=== PATIENT | male | born 1960 | race Caucasian/White ===

== ENCOUNTER 2025-01-12 08:05 | Inpatient (IN) | payer MEDICARE, SELFPAY ==
[2025-01-12] VITALS (26 sets, daily range): BP systolic 95–145; BP diastolic 52–93; PULSE 66–106; RESP 16–114; TEMP 36.2–37.2; O2SAT 92–100; BMI 21.2; BMI 24.3
--- NOTE | 2025-01-12 08:10 | EX.ED.GUMALE ---
HPI History of Present Illness Chief Complaint: Complaint Informant: patient Pain Onset: Weeks Context: Gradual Onset Current Severity: Mild Maximum Severity: Mild Narrative Narrative: 64-year-old male currently has no primary care physician. Denies any past medical or surgical history. States he has had gross hematuria for the last month. At times it is difficult to pee. He denies any significant clots. Does not burn or hurt to urinate. Fianc? states he had about a 20 pound weight loss several months ago. He denies any melena. He denies any bruising. Currently he is on no medications. No prior history of hematuria. Prior similar symptoms: Yes Recent Illness/Hospitalization: No PFSH PFSH Medical History no medical history Home Medications ?Medication ?Instructions ?Recorded ?Last Taken ?Type NK 01/12/25 Unknown History Allergy/AdvReac Type Severity Reaction Status Date / Time No Known Allergies Allergy Verified 01/12/25 08:06 Social History Smoking Status: Current every day smoker tobacco type: cigarettes ROS ROS ED ROS Narrative Gross hematuria otherwise denies recent illness. Constitutional Constitutional ED: Denies chills or fever(s) Eyes Eyes: Denies blurry vision ENT ENT ED: Denies ear pain Cardiovascular Cardiovascular: Denies chest pain Respiratory/Chest Respiratory/Chest: Denies cough Gastrointestinal Gastrointestinal: Denies abdominal pain, constipation, diarrhea, melena, nausea or vomiting Genitourinary Genitourinary ED: Reports hematuria; Denies dysuria Musculoskeletal Musculoskeletal: Denies arthralgias or back pain Integumentary Denies abscess Neurologic Neurologic: Denies headache(s) Psychiatric Psychiatric: Denies anxiety Endocrine Endocrinology: Denies polydipsia Hematologic/Lymphatic Hematologic/Lymphatic: Denies easy bleeding, easy bruising or lymphadenopathy Allergic/Immunologic Allergic/Immunologic ED: Denies mouth swelling, tongue swelling or urticaria EXAM Physical Exam Narrative Exam Narrative: Well-appearing 64-year-old male. Vital signs are stable and afebrile. Sitting upright in bed. Fianc? in the room. Patient is in no acute distress. H EENT exam pupils are unreactive light. Moist membranes. Neck nontender. No JVD. No lymphadenopathy. Lungs clear to auscultation bilaterally. Heart tachycardic 105 no murmur. Chest wall ribs nontender. Abdomen soft, nontender, nondistended, normal bowel sounds without peritoneal signs. No suprapubic tenderness. Moving all 4 extremities. Nontender no edema. Normal strength. Neurologically is awake alert. Answer questions following commands. He does have a mild tremor. Skin appears pale. No rashes. No petechiae or purpura. No bruising. I do not see any jaundice or scleral icterus. Const Vital Signs: 01/12/25 08:06 01/12/25 09:41 01/12/25 10:13 Temperature 97.2 F L 98 F Temperature Source Temporal Pulse Rate 106 H 88 88 Respiratory Rate 19 H 17 17 Blood Pressure 105/52 L 95/59 L 103/58 L Blood Pressure Mean 69 71 73 Pulse Ox 98 100 100 Oxygen Delivery Method Room Air Room Air Positive well nourished and well developed; Negative for obese, cachectic, contractures or unkempt General Appearance ED: well developed, NAD and pallor; Negative for unkempt, cachectic or contractures Nutritional Appearance: Negative for cachectic or obese HEENT Reports moist mucous membranes Eyes PERRL and EOMs intact bilaterally General Eye ED: Negative for scleral icterus Neck no lymphadenopathy, supple and no JVD Resp normal respiratory effort and clear to auscultation bilaterally Cardio regular rhythm, S1 normal heart sound, S2 normal heart sound and no murmurs; Negative for regular rate Rate: tachycardic GI non-tender, non-distended and no masses Auscultation: normoactive bowel sounds Palpation: soft; Negative for tender, guarding or splenomegaly no CVA tenderness Bladder / Kidney Exam: No CVA tenderness Groin / Perineum Exam: Negative for edema or lesions Back/Spine no CVA tenderness General Back: Negative for CVA tenderness Cervical Spine: Negative for cervical spine tenderness Thoracic Spine / Upper Back: Negative for thoracic spinal tenderness Lumbar Spine / Lower Back: Negative for lumbar spinal tenderness Extremity normal to inspection Neuro oriented x3, CN's II-XII intact bilaterally, moves all extremities and no focal motor deficits Neuro Narrative: Tremor. Sensorium / Orientation: alert, oriented to person, oriented to place and oriented to time Motor Exam: strength 5/5 throughout Psych mental status grossly normal Appearance: Negative for unkempt Attitude: No agitated Mood & Affect: Negative for depressed, anxious or tearful Thought Process: normal thought process Thought Content: normal thought content Skin General Skin Exam: pallor; Negative for jaundice Lesions: no lesions Rashes: no rashes Trauma: Negative for abrasion or laceration MDM MDM MDM Narrative Medical decision making narrative: 64-year-old male has not seen a physician for some time. Complaining of painless hematuria for about a month. Screening labs are being obtained. UA to rule out infection. CBC for possible anemia. Bladder scan postvoid to see if he is having any urinary retention but he seems like he is urinating okay. Patient was having nausea was given IV Zofran. Due to the patient's significant anemia will be typed and crossed for 4 units. Transfused 2. He will be admitted once the labs return. I am also adding a CAT scan of his abdomen and pelvis due to the anemia and weight loss. I spoke to both the hospitalist and urology. Urology wanted a three-way 22 [place] Freeman catheter placed to irrigate out the bladder. Due to the patient's anemia and need for transfusion hospitalist wanted the patient admitted to the ICU. History & Record Review Discussion w/independent historian: Patient and Family Additional record(s) reviewed:: No prior records Lab Data Attestation: I reviewed the patient's lab results. Lab results narrative: Postvoid bladder scan was only 93. No urinary retention. Urinalysis shows 250 occult blood. No nitrates. No bacteria. Greater than 100 red cells. 10-25 white cells. Patient is having no dysuria. Urine culture will be sent. CBC has a white count of 10. A hemoglobin of 3.6 and a hematocrit of 11.5. Platelet count 479. No old labs available for comparison. Chemistries show a gap at 21. BUN and creatinine of 27 and 2.3. Glucose 183. Again no old labs available for comparison. CAT scan shows a bladder mass with bilateral hydronephrosis consistent with possible bladder cancer. Labs: Laboratory Results - last 24 hr 01/12/25 01/12/25 01/12/25 08:15 08:32 08:32 WBC Cancelled Corrected WBC Cancelled RBC Cancelled Hgb Cancelled Hct Cancelled MCV Cancelled MCH Cancelled MCHC Cancelled RDW Std Deviation Cancelled RDW Coeff of Jodie Cancelled Plt Count Cancelled MPV Cancelled Immature Gran % (Auto) Cancelled Neut % (Auto) Cancelled Lymph % (Auto) Cancelled [place] % (Auto) Cancelled Eos % (Auto) Cancelled Baso % (Auto) Cancelled Absolute Neuts (auto) Cancelled Absolute Lymphs (auto) Cancelled Total Counted Cancelled Neutrophils % (Manual) Cancelled Band Neutrophils % Cancelled Lymphocytes % (Manual) Cancelled Monocytes % (Manual) Cancelled Eosinophils % (Manual) Cancelled Basophils % (Manual) Cancelled Metamyelocytes % Cancelled Myelocytes % Cancelled Promyelocytes % Cancelled Blast Cells % Cancelled Plasma Cell % (Manual) Cancelled Other Cells % Cancelled Nucleated RBC % Cancelled Nucleated RBCs/100 WBC Cancelled Differential Comment Cancelled Diff Path Review Cancelled Hypersegmented Neuts Cancelled Atypical Lymphocytes Cancelled Reactive Lymphocytes Cancelled Smudge Cells Cancelled Toxic Granulation Cancelled Toxic Vacuolation Cancelled Dohle Bodies Cancelled [place] Rods Cancelled Platelet Estimate Cancelled Plt Morphology Comment Cancelled RBC Morphology Cancelled Cancelled Polychromasia Cancelled Hypochromasia Cancelled Basophilic Stippling Cancelled Anisocytosis Cancelled Microcytosis Cancelled Macrocytosis Cancelled Spherocytes Cancelled Sickle Cells Cancelled Target Cells Cancelled Tear Drop Cells Cancelled Ovalocytes Cancelled Stomatocytes Cancelled [place] Bodies Cancelled [place] Cells Cancelled Bite Cells Cancelled Crenated Cell Cancelled Acanthocytes (Spur) Cancelled Rouleaux Cancelled Schistocytes Cancelled Sodium 135 Potassium 4.2 Chloride 99 Carbon Dioxide 15.5 L Anion Gap 21 H BUN 27 H Creatinine 2.30 H Estim Creat Clear Calc 28.40 L Est GFR (MDRD) Non-Af 31 L BUN/Creatinine Ratio 11.8 Glucose 183 H Calcium 8.6 Total Bilirubin 0.40 Direct Bilirubin 0.19 AST 21 ALT < 5 Alkaline Phosphatase 74 Total Protein 6.1 Albumin 3.9 Globulin 2.3 Urine Color Red Urine Clarity Turbid Urine pH 6.5 Ur Specific [place] 1.015 Urine Protein TNP Urine Glucose (UA) Normal Urine Ketones 5 H Urine Occult Blood 250 H Urine Nitrite Negative Urine Bilirubin Negative Urine Urobilinogen Normal Ur Leukocyte Esterase 25 H Urine RBC > 100 SEEN Urine WBC 10-25 SEEN Ur Squamous Epith Cells 0 SEEN Urine Bacteria 0 SEEN Urine Mucus 0 SEEN U Random Total Protein 128.0 H Blood Type Antibody Screen Crossmatch 01/12/25 01/12/25 08:50 09:10 WBC 10.8 Corrected WBC RBC 1.37 L Hgb 3.6 L* Hct 11.5 L MCV 83.9 MCH 26.3 L MCHC 31.3 L RDW Std Deviation 45.7 H RDW Coeff of Jodie 15.0 H Plt Count 479 H MPV 8.8 Immature Gran % (Auto) 0.600 Neut % (Auto) 81.5 H Lymph % (Auto) 12.9 L [place] % (Auto) 4.3 Eos % (Auto) 0.5 Baso % (Auto) 0.2 Absolute Neuts (auto) 8.8 H Absolute Lymphs (auto) 1.40 Total Counted Neutrophils % (Manual) Band Neutrophils % Lymphocytes % (Manual) Monocytes % (Manual) Eosinophils % (Manual) Basophils % (Manual) Metamyelocytes % Myelocytes % Promyelocytes % Blast Cells % Plasma Cell % (Manual) Other Cells % Nucleated RBC % 0 Nucleated RBCs/100 WBC Differential Comment Diff Path Review Hypersegmented Neuts Atypical Lymphocytes Reactive Lymphocytes Smudge Cells Toxic Granulation Toxic Vacuolation Dohle Bodies [place] Rods Platelet Estimate Plt Morphology Comment RBC Morphology Polychromasia Hypochromasia Basophilic Stippling Anisocytosis Microcytosis Macrocytosis Spherocytes Sickle Cells Target Cells Tear Drop Cells Ovalocytes Stomatocytes [place] Bodies Converse Cells Bite Cells Crenated Cell Acanthocytes (Spur) Rouleaux Schistocytes Sodium Potassium Chloride Carbon Dioxide Anion Gap BUN Creatinine Estim Creat Clear Calc Est GFR (MDRD) Non-Af BUN/Creatinine Ratio Glucose Calcium Total Bilirubin Direct Bilirubin AST ALT Alkaline Phosphatase Total Protein Albumin Globulin Urine Color Urine Clarity Urine pH Ur Specific [place] Urine Protein Urine Glucose (UA) Urine Ketones Urine Occult Blood Urine Nitrite Urine Bilirubin Urine Urobilinogen Ur Leukocyte Esterase Urine RBC Urine WBC Ur Squamous Epith Cells Urine Bacteria Urine Mucus U Random Total Protein Blood Type B POSITIVE Antibody Screen NEGATIVE Crossmatch See Detail Radiography Diagnostic Testing: Clinical Impression(s) from Imaging Studies Abdomen/Pelvis CT 01/12/25 09:30 IMPRESSION: 4.8 cm urinary bladder mass is highly suspicious for urothelial carcinoma. There is associated severe left and [id number] right hydroureteronephrosis with left renal parenchymal thinning. Dense debris in the urinary bladder is probably blood. A pelvis MRI may increase sensitivity for local invasion. No lymphadenopathy to suggest metastasis. Yellow Alert: 4.8 cm urinary bladder mass is highly suspicious for urothelial carcinoma. Reading [facility] Critical Care Time Critical Care Time: Yes Critical care time (excluding procedures): 30-74 minutes, Including time spent:, Discussing w/Patient &/or Family/Supply Clerk, Discussing w/Consultants, Arranging Admission or Transfer, Performing Direct Patient Care at Bedside and - (35 minutes.) Discharge Plan Dx/Rx/DC Orders Clinical Impression: Severe anemia, Gross hematuria, Bladder mass, Hydronephrosis, bilateral, Acute kidney injury, Acute bilateral obstructive uropathy Disposition Disposition: Acute Care Hospital [facility]
[2025-01-12 08:21] LABS: Bacteria 0 SEEN /hpf (None Seen); Mucous, Urine 0 SEEN /hpf (<or=2+); Squamous Epithelial Cells - UA 0 SEEN /hpf (0-5)
[2025-01-12 08:26] LABS: Color, Urine Red (Yellow); Glucose, Dipstick Normal (Normal); Ketone-Dipstick 5 mg/dl (Negative); Leukocyte Esterase-Dipstick 25 /ul (Negative); Nitrite-Dipstick Negative (Negative); Occult Blood-Urine 250 /ul (Negative); Specific Gravity, Urine 1.015 (1.002-1.030); Urine Bilirubin Dipstick Negative (Negative); Urine Clarity Turbid (Clear); Urine Urobilinogen Normal (Normal); Urine pH 6.5 (5.0 - 8.0)
[2025-01-12 08:49] LABS: Red Blood Cells-Urine > 100 SEEN /hpf (0-5); White Blood Cells 10-25 SEEN /hpf (0-5)
[2025-01-12] MEDS: Ondansetron 4 MG/2 ML Vial IV (08:57)
[2025-01-12 09:01] LABS: Absolute Neutrophil Count 8.8 X10^3/uL (2.0-7.7); Basophil# 0.02 X10^3/uL; Basophil% 0.2 % (0-1); Eosinophil# 0.05 X10^3/uL; Eosinophils% 0.5 % (0-5); Hematocrit 11.5 % (40-54); Lymphocyte % 12.9 % (19-41); Mean Corp Hgb Conc 31.3 g/dL (32-36); Mean Corpuscular Hgb 26.3 pg (27.0-32.0); Mean Corpuscular Volume 83.9 fL (80-94); Mean Platelet Vol. 8.8 fl (6.2-12.0); Monocyte# 0.46 X10^3/uL; Monocyte% 4.3 % (0-10); NRBC Flagged by Analyzer 0 % (0-5); Neutrophil # 8.83 X10^3/uL (2.7-7.7); Neutrophil % 81.5 % (47-70); POSITIVE COUNT YES; Platelet Count 479 K/mm3 (150-450); RBC Distribution Width SD 45.7 fl (35.1-43.9); Red Blood Count 1.37 M/mm3 (4.6-6.2); White Blood Count 10.8 K/mm3 (4.4-11.0)
[2025-01-12 09:02] LABS: Hemoglobin 3.6 g/dL (13.0-16.5)
--- NOTE | 2025-01-12 09:04 | ED.RN ---
LAB CALLED CRITICAL OF HEMOGLOBIN 3.6 DR GONZALEZ
--- NOTE | 2025-01-12 09:30 | CT_ITS ---
PROCEDURE: ABDOMEN/PELVIS W IV CONT ONLY 01/12/2025 REASON FOR EXAM: ANEMIA AND WEIGHT LOSS Hematuria TECHNIQUE: Abdomen and pelvis CT with intravenous contrast. Coronal and Sagittal reconstruction series were provided. PATIENT PREPARATION: Per protocol CONTRAST: Isovue-300 VOLUME: 94 mL IV One or more dose reduction techniques were used (e.g., Automated exposure control, adjustment of the mA and/or kV according to patient size, use of iterative reconstruction technique. RADIATION DOSE SUMMARY: DLP: 899.40 mGycm COMPARISON: None FINDINGS: Lung bases: Mild dependent atelectasis Liver: Normal size. No mass. Gallbladder: Within normal limits. Spleen: Normal size. Pancreas: Diffuse fatty atrophy. Adrenals: No nodule. Kidneys: Left parenchymal thinning with delayed nephrogram. Bladder: 4.5 x 4.8 x 3.3 cm bladder mass obscures the left ureter orifice and at least abuts the right ureter orifice. Right more than left urinary bladder wall thickening. Severe left and moderate to severe right hydroureteronephrosis. Dense debris in the urinary bladder. Reproductive Organs: The prostate is not enlarged. Bowel: No bowel obstruction. Appendix: Within normal limits. Lymph nodes: No suspicious lymph node enlargement. Vasculature: Mild diffuse atherosclerotic calcifications are noted. Peritoneum / Retroperitoneum: No free fluid or gas. Bones: Degenerative changes of the spine. CT/Abdomen/Pelvis W IV Cont ONLY IMPRESSION: 4.8 cm urinary bladder mass is highly suspicious for urothelial carcinoma. The re is associated severe left and [id number] right hydroureteronephrosis with left renal parenchymal thin nika. Dense debris in the urinary bladder is probably blood. A pelvis MRI may increase sensitivity for local invasion. No lymphadenopathy to suggest metastasis. Yellow Alert: 4.8 cm urinary bladder mass is highly suspicious for urothelial c arcinoma. Reading Location: [facility]
[2025-01-12 09:39] LABS: AST(SGOT) 21 U/L (<=37); Alanine Aminotransfer ALT/SGPT < 5 U/L (<=46); Albumin, Serum 3.9 g/dL (3.4-4.8); Alkaline Phosphatase 74 U/L (40-129); Anion Gap 21 (5-15); BUN 27 mg/dL (4-19); BUN/Creat Ratio 11.8 RATIO (10-20); Bilirubin, Direct 0.19 mg/dL (0.00-0.30); Calcium,Total 8.6 mg/dL (7.6-11.0); Carbon Dioxide 15.5 mmol/L (21.0-32.0); Chloride 99 mmol/L (98-108); EST Glomerular Filtration Rate 31 (>60); Globulin 2.3 g/dL (2.2-4.2); Glucose 183 mg/dL (70-99); Potassium 4.2 mmol/L (3.3-5.1); Protein, Total 6.1 g/dL (5.9-8.4); Sodium Level 135 mmol/L (133-145)
--- NOTE | 2025-01-12 10:39 | HP.PCM.HOS_ITS ---
HPI - General General Date of Admission: 01/12/25 Date of Service: 01/12/25 Chief Complaint: hematuria HPI Narrative SAI JAY, is a 64 M with a PMH as outlined who presents via the ED On 01/12/2025 with a complaint of hematuria for at least a month prior to admission. He has not seen a doctor in years. HE says the hematuria worsened and persisted so he came in to the ED. He denied any fever, chills, cough, chest pain, abdominal pain, nausea, vomiting or any other symptoms. REview of systems is otherwise negative. Vitals in the ED wre BP of 103/58, HI of 88, RR of 17 and temp of 98F. He was saturating at 100% on room air. CBC showed hemoglobin of 3.6 with WBC of 10.8 and platelets of 479. Chemistry shows sodium of 135 with potassium of 4.2 and bicarb of 15.5. Anion gap was 21. Creatinine was 2.3. Liver enzymes were within normal limits. Urinalysis showed more than 100 WBC and 10-25 WBCs per high-power field with [address] of the abdomen and pelvis showed 4.8 cm urinary bladder mass highly suspicious for urothelial carcinoma with associated severe left and moderate to severe right hydroureteronephrosis with left renal parenchymal thickening and dense debris in the urinary bladder which is probably blood. [facility] Medical History no medical history Home Medications ?Medication ?Instructions ?Recorded ?Last Taken ?Type NK 01/12/25 Unknown History Allergy/AdvReac Type Severity Reaction Status Date / Time No Known Allergies Allergy Verified 01/12/25 08:06 Social History Smoking Status: Current every day smoker tobacco type: cigarettes ROS Constitutional Constitutional: Reports fatigue, malaise and weakness; Denies anorexia, chills or fever(s) Eyes Eyes: Denies change in vision ENT HEENT: Denies dysphagia, headache(s) or sore throat Cardiovascular Cardiovascular: Denies chest pain, dyspnea on exertion, edema, lightheadedness, orthopnea, palpitations, rapid heart rate or syncope Respiratory/Chest Respiratory/Chest: Denies cough, dyspnea, shortness of breath at rest or shortness of breath with exertion Gastrointestinal Gastrointestinal: Denies abdominal pain, constipation, diarrhea, dyspepsia, hematochezia, melena, nausea or vomiting Genitourinary Genitourinary: Reports difficulty urinating, hematuria and urinary frequency; Denies burning urination, dysuria, nocturia, urinary hesitancy, urinary incontinence or urinary urgency Musculoskeletal Musculoskeletal: Denies arthralgias or back pain Neurologic Neurologic: Denies confusion, dizziness, focal weakness, headache(s), numbness, paresthesias, seizures or syncope Psychiatric Psychiatric: Denies anxiety or depression Endocrine Endocrinology: Denies change in body appearance Hematologic/Lymphatic Hematologic/Lymphatic: Reports anemia Vital Signs Vital Signs Vital Signs: 01/12/25 08:06 01/12/25 09:41 01/12/25 10:13 Temperature 97.2 F L 98 F Temperature Source Temporal Pulse Rate 106 H 88 88 Respiratory Rate 19 H 17 17 Blood Pressure 105/52 L 95/59 L 103/58 L Blood Pressure Mean 69 71 73 Pulse Ox 98 100 100 Oxygen Delivery Method Room Air Room Air Weight Weight: 140 lb 1.6 oz Body Mass Index (BMI) 21.2 Physical Exam Const alert and oriented x3 Constitutional Narrative: looks very pale, anxious General Appearance: cooperative HEENT normocephalic, head/scalp atraumatic, hearing grossly normal bilaterally and moist oral mucous membranes Mouth: oral and palatal mucosa normal Eyes PERRL, EOMs intact bilaterally and conjunctivae normal Neck no lymphadenopathy and supple Resp normal respiratory effort, no retractions, no use of accessory muscles and clear to auscultation bilaterally GI normal to inspection, nondistended, normoactive bowel sounds, soft to palpation, non-tender and non-distended Extremity normal to inspection, full ROM and no clubbing, cyanosis or edema Neuro oriented x3, CN's II-XII intact bilaterally, moves all extremities and no focal motor deficits Sensorium / Orientation: awake and alert Motor Exam: strength 5/5 throughout Psych Mood & Affect: anxious Results Lab / Micro Data 01/12/25 08:50 01/12/25 08:32 Labs: Laboratory Results - last 24 hr 01/12/25 08:15: Urine Color Red, Urine Clarity Turbid, Urine pH 6.5, Ur Specific [place] 1.015, Urine Protein TNP, Urine Glucose (UA) Normal, Urine Ketones 5 H, Urine Occult Blood 250 H, Urine Nitrite Negative, Urine Bilirubin Negative, Urine Urobilinogen Normal, Ur Leukocyte Esterase 25 H, Urine RBC > 100 SEEN, Urine WBC 10-25 SEEN, Ur Squamous Epith Cells 0 SEEN, Urine Bacteria 0 SEEN, Urine Mucus 0 SEEN, U Random Total Protein 128.0 H 01/12/25 08:32: WBC Cancelled, Corrected WBC Cancelled, RBC Cancelled, Hgb Cancelled, Hct Cancelled, MCV Cancelled, MCH Cancelled, MCHC Cancelled, RDW Std Deviation Cancelled, RDW Coeff of Jodie Cancelled, Plt Count Cancelled, MPV Cancelled, Immature Gran % (Auto) Cancelled, Neut % (Auto) Cancelled, Lymph % (Auto) Cancelled, [place] % (Auto) Cancelled, Eos % (Auto) Cancelled, Baso % (Auto) Cancelled, Absolute Neuts (auto) Cancelled, Absolute Lymphs (auto) Cancelled, Total Counted Cancelled, Neutrophils % (Manual) Cancelled, Band Neutrophils % Cancelled, Lymphocytes % (Manual) Cancelled, Monocytes % (Manual) Cancelled, Eosinophils % (Manual) Cancelled, Basophils % (Manual) Cancelled, Metamyelocytes % Cancelled, Myelocytes % Cancelled, Promyelocytes % Cancelled, Blast Cells % Cancelled, Plasma Cell % (Manual) Cancelled, Other Cells % Cancelled, Nucleated RBC % Cancelled, Nucleated RBCs/100 WBC Cancelled, Differential Comment Cancelled, Diff Path Review Cancelled, Hypersegmented Neuts Cancelled, Atypical Lymphocytes Cancelled, Reactive Lymphocytes Cancelled, Smudge Cells Cancelled, Toxic Granulation Cancelled, Toxic Vacuolation Cancelled, Dohle Bodies Cancelled, [place] Rods Cancelled, Platelet Estimate Cancelled, Plt Morphology Comment Cancelled, RBC Morphology Cancelled 01/12/25 08:32: RBC Morphology Cancelled, Polychromasia Cancelled, Hypochromasia Cancelled, Basophilic Stippling Cancelled, Anisocytosis Cancelled, Microcytosis Cancelled, Macrocytosis Cancelled, Spherocytes Cancelled, Sickle Cells Cancelled, Target Cells Cancelled, Tear Drop Cells Cancelled, Ovalocytes Cancelled, Stomatocytes Cancelled, Valdes-[place] Bodies Cancelled, [place] Cells Cancelled, Bite Cells Cancelled, Crenated Cell Cancelled, Acanthocytes (Spur) Cancelled, Rouleaux Cancelled, Schistocytes Cancelled, Sodium 135, Potassium 4.2, Chloride 99, Carbon Dioxide 15.5 L, Anion Gap 21 H, BUN 27 H, Creatinine 2.30 H, Estim Creat Clear Calc 28.40 L, Est GFR (MDRD) Non-Af 31 L, BUN/Creatinine Ratio 11.8, Glucose 183 H, Calcium 8.6, Total Bilirubin 0.40, Direct Bilirubin 0.19, AST 21, ALT < 5, Alkaline Phosphatase 74, Total Protein 6.1, Albumin 3.9, Globulin 2.3 01/12/25 08:50: WBC 10.8, RBC 1.37 L, Hgb 3.6 L*, Hct 11.5 L, MCV 83.9, MCH 26.3 L, MCHC 31.3 L, RDW Std Deviation 45.7 H, RDW Coeff of Jodie 15.0 H, Plt Count 479 H, MPV 8.8, Immature Gran % (Auto) 0.600, Neut % (Auto) 81.5 H, Lymph % (Auto) 12.9 L, [place] % (Auto) 4.3, Eos % (Auto) 0.5, Baso % (Auto) 0.2, Absolute Neuts (auto) 8.8 H, Absolute Lymphs (auto) 1.40, Nucleated RBC % 0 01/12/25 09:10: Blood Type B POSITIVE, Antibody Screen NEGATIVE, Crossmatch See Detail Imaging Radiology Impression Abdomen/Pelvis CT 01/12/25 09:30 IMPRESSION: 4.8 cm urinary bladder mass is highly suspicious for urothelial carcinoma. There is associated severe left and [id number] right hydroureteronephrosis with left renal parenchymal thinning. Dense debris in the urinary bladder is probably blood. A pelvis MRI may increase sensitivity for local invasion. No lymphadenopathy to suggest metastasis. Yellow Alert: 4.8 cm urinary bladder mass is highly suspicious for urothelial carcinoma. Reading [facility] Assessment & Plan Assessment/Plan (1) Acute bilateral obstructive uropathy: (2) Acute kidney injury: (3) Bladder mass: (4) Gross hematuria: (5) Severe anemia: (6) Hydronephrosis, bilateral: PLAN: Plan #Acute anemia due to hematuria in the setting of bladder mass * Patient does not regularly see a doctor. Came in with hematuria which have been going on for about a month and worsening. * Hemoglobin is 3.6. There is no baseline hemoglobin to compare with. CT of the abdomen and pelvis showed a 4.8 cm urinary bladder mass highly suspicious for urothelial carcinoma with associated severe left and moderate to severe right hydroureteronephrosis with left renal parenchymal thickening and dense debris in the urinary bladder probably blood. No evidence of lymphadenopathy * Admit to ICU in the setting of the hemoglobin of 3.6. ED discussed with urology already. Will therefore consult urology. * Of three-way catheter inserted for continuous bladder irrigation. * Transfused 2 units of packed red blood cells. Already ordered in the ED. * Consult urology. #JULIO * Likely postrenal due to the obstructive uropathy on account of a bladder mass. * CT of the abdomen and pelvis did show bilateral hydronephrosis. * Freeman catheter inserted. Undergoing continuous bladder irrigation. Creatinine is 2.3. * Will trend creatinine and if it trends upwards further we will consult nephrology. * #DVT prophylaxis: SCDs CODE STATUS: Full code * Patient counseled extensively about different types of CODE STATUS including full code, DNR CCA and DNR CCA. Patient elects to be full code. * Total [id number] time 17 minutes. Charges/Coding Visit Charges Inpatient E&M: 88490 Init Hosp L3 Procedures Hospitalists Procedures: 61725 Advncd Care Plan 30 Min
[2025-01-12] MEDS: Lorazepam 2 MG/ML WCH Syringe 0.5 MG IV (11:25)
[2025-01-12 11:47] LABS: Iron Binding Capacity,Total 355 ug/dL (250-450)
--- NOTE | 2025-01-12 12:07 | CON.PCM.CC_ITS ---
Assessment & Plan Assessment/Plan (1) Acute bilateral obstructive uropathy: (2) Acute kidney injury: (3) Bladder mass: (4) Severe anemia: (5) Gross hematuria: PLAN: Plan RECOMMENDATIONS: 1. Awaiting consultation by urology. 2. Transfuse blood products to achieve and maintain hemoglobin at or above 7 g/dL. 3. Encourage incentive spirometer use while in bed. IMPRESSIONS: 1. Acute blood loss anemia in the setting of obstructive uropathy and concern for underlying bladder mass The patient presented to the hospital with underlying hematuria with radiographic evidence of bilateral hydroureteronephrosis along with a 4.8 cm bladder mass, concerning for carcinoma. A three-way Indonesian Freeman catheter was placed in the emergency department with consultation to urology pending. Agree with transfusion of blood products in an attempt to achieve and maintain a hemoglobin at or above 7 g/dL. The patient is otherwise hemodynamically stable. Will await evaluation by urology for further recommendations. 2. Acute versus chronic kidney disease Given that the patient has not followed by a PCP on an outpatient basis, his baseline creatinine is not clear. His elevated creatinine may be secondary to obstructive uropathy in the setting of #1. Continue gentle IV fluid hydration and transfusion of blood products. Continue to monitor urine output. No current indication for renal replacement therapy. 3. History of tobacco dependency, currently in remission Complicates care, management, recovery and prognosis. Continue supportive care as noted above. This note was generated with [employer] dictation software. It may contain incorrect words, spelling, and punctuation that were not noted in checking the note before signing. HPI Consult Data Date of Consult: 01/12/25 HPI Narrative Reason for Consultation: Blood loss anemia HPI Narrative: The patient is a 64-year-old male, without any significant past medical history, who presented to the emergency department on January 12 with complaints of hematuria for approximately 1 months duration. In addition, the patient also had some unintentional weight loss over the course of the last several months. He is not currently followed by a primary care provider on an outpatient basis. Therefore, he has never been diagnosed with any medical conditions. The patient does report a longstanding tobacco abuse history, which is apparently now in remission. The patient denied any alcohol or illicit drug use. On presentation to the emergency department, the patient was documented to be afebrile and hemodynamically stable. Laboratory evaluation was notable for a hemoglobin of 3.6 g/dL. Chemistry profile was notable for anion gap of 21, BUN of 27 and creatinine of 2.3. CT abdomen/pelvis demonstrated a 4.8 cm urinary bladder mass concerning for carcinoma along with severe left and moderate to severe right hydroureteronephrosis. The patient was ordered to receive supplemental IV fluid hydration and transfusion of blood products. Consultation was placed to urology. [facility] Medical History no medical history Home Medications ?Medication ?Instructions ?Recorded ?Last Taken ?Type NK 01/12/25 Unknown History Allergy/AdvReac Type Severity Reaction Status Date / Time No Known Allergies Allergy Verified 01/12/25 08:06 Social History Smoking Status: Current every day smoker tobacco type: cigarettes ROS ROS Narrative 10 systems were reviewed with pertinent positives as noted in the HPI above. Physical Exam Const alert and no apparent distress Constitutional Narrative: Appears somewhat tremulous. General Appearance: cooperative HEENT normocephalic and head/scalp atraumatic Teeth and Gingiva: poor dentition Eyes PERRL, EOMs intact bilaterally and conjunctivae normal Neck supple General: trachea midline Chest inspection of chest normal Resp normal respiratory effort Auscultation: Negative for rales, rhonchi or wheezes Cardio regular rate and regular rhythm GI normal to inspection, nondistended, normoactive bowel sounds Extremity no clubbing, cyanosis or edema Skin no rashes or lesions noted Neuro CN's II-XII intact bilaterally, moves all extremities and no focal motor deficits Psych cooperative and affect normal Lab / Micro Data 01/12/25 08:50 01/12/25 08:32 Labs: Laboratory Results - last 24 hr 01/12/25 08:15: Urine Color Red, Urine Clarity Turbid, Urine pH 6.5, Ur Specific [place] 1.015, Urine Protein TNP, Urine Glucose (UA) Normal, Urine Ketones 5 H, Urine Occult Blood 250 H, Urine Nitrite Negative, Urine Bilirubin Negative, Urine Urobilinogen Normal, Ur Leukocyte Esterase 25 H, Urine RBC > 100 SEEN, Urine WBC 10-25 SEEN, Ur Squamous Epith Cells 0 SEEN, Urine Bacteria 0 SEEN, Urine Mucus 0 SEEN, U Random Total Protein 128.0 H 01/12/25 08:32: WBC Cancelled, Corrected WBC Cancelled, RBC Cancelled, Hgb Cancelled, Hct Cancelled, MCV Cancelled, MCH Cancelled, MCHC Cancelled, RDW Std Deviation Cancelled, RDW Coeff of Jodie Cancelled, Plt Count Cancelled, MPV Cancelled, Immature Gran % (Auto) Cancelled, Neut % (Auto) Cancelled, Lymph % (Auto) Cancelled, Robertson % (Auto) Cancelled, Eos % (Auto) Cancelled, Baso % (Auto) Cancelled, Absolute Neuts (auto) Cancelled, Absolute Lymphs (auto) Cancelled, Total Counted Cancelled, Neutrophils % (Manual) Cancelled, Band Neutrophils % Cancelled, Lymphocytes % (Manual) Cancelled, Monocytes % (Manual) Cancelled, Eosinophils % (Manual) Cancelled, Basophils % (Manual) Cancelled, Metamyelocytes % Cancelled, Myelocytes % Cancelled, Promyelocytes % Cancelled, Blast Cells % Cancelled, Plasma Cell % (Manual) Cancelled, Other Cells % Cancelled, Nucleated RBC % Cancelled, Nucleated RBCs/100 WBC Cancelled, Differential Comment Cancelled, Diff Path Review Cancelled, Hypersegmented Neuts Cancelled, Atypical Lymphocytes Cancelled, Reactive Lymphocytes Cancelled, Smudge Cells Cancelled, Toxic Granulation Cancelled, Toxic Vacuolation Cancelled, Dohle Bodies Cancelled, Asia Rods Cancelled, Platelet Estimate Cancelled, Plt Morphology Comment Cancelled, RBC Morphology Cancelled 01/12/25 08:32: RBC Morphology Cancelled, Polychromasia Cancelled, Hypochromasia Cancelled, Basophilic Stippling Cancelled, Anisocytosis Cancelled, Microcytosis Cancelled, Macrocytosis Cancelled, Spherocytes Cancelled, Sickle Cells Cancelled, Target Cells Cancelled, Tear Drop Cells Cancelled, Ovalocytes Cancelled, Stomatocytes Cancelled, [place] Bodies Cancelled, [place] Cells Cancelled, Bite Cells Cancelled, Crenated Cell Cancelled, Acanthocytes (Spur) Cancelled, Rouleaux Cancelled, Schistocytes Cancelled, Sodium 135, Potassium 4.2, Chloride 99, Carbon Dioxide 15.5 L, Anion Gap 21 H, BUN 27 H, Creatinine 2.30 H, Estim Creat Clear Calc 28.40 L, Est GFR (MDRD) Non-Af 31 L, BUN/Creatinine Ratio 11.8, Glucose 183 H, Calcium 8.6, TIBC 355, Iron Saturation 3.0 L, Total Bilirubin 0.40, Direct Bilirubin 0.19, AST 21, ALT < 5, Alkaline Phosphatase 74, Total Protein 6.1, Albumin 3.9, Globulin 2.3 01/12/25 08:50: WBC 10.8, RBC 1.37 L, Hgb 3.6 L*, Hct 11.5 L, MCV 83.9, MCH 26.3 L, MCHC 31.3 L, RDW Std Deviation 45.7 H, RDW Coeff of Jodie 15.0 H, Plt Count 479 H, MPV 8.8, Immature Gran % (Auto) 0.600, Neut % (Auto) 81.5 H, Lymph % (Auto) 12.9 L, Robertson % (Auto) 4.3, Eos % (Auto) 0.5, Baso % (Auto) 0.2, Absolute Neuts (auto) 8.8 H, Absolute Lymphs (auto) 1.40, Nucleated RBC % 0 01/12/25 09:10: Blood Type B POSITIVE, Antibody Screen NEGATIVE, Crossmatch See Detail Imaging Radiology Impression Abdomen/Pelvis CT 01/12/25 09:30 IMPRESSION: 4.8 cm urinary bladder mass is highly suspicious for urothelial carcinoma. There is associated severe left and [id number] right hydroureteronephrosis with left renal parenchymal thinning. Dense debris in the urinary bladder is probably blood. A pelvis MRI may increase sensitivity for local invasion. No lymphadenopathy to suggest metastasis. Yellow Alert: 4.8 cm urinary bladder mass is highly suspicious for urothelial carcinoma. Reading Location: [facility] Charges/Coding Visit Charges Inpatient E&M: 96578 Init Hosp L2
[2025-01-12 12:09] LABS: Iron 11 ug/dL (65-175); Iron Binding Capacity,Unsat 344 ug/dL (228-428); PERCENT IRON SATURATION 3.1 % (9-55); PSA,Total - Annual Screen 0.56 ng/mL (0.02-4.00)
[2025-01-12] MEDS: 0.9% Normal Saline (1000mL) 1,000 ML 150 ML IV ×2 (12:13→19:51)
[2025-01-12 12:31] LABS: Ferritin 12 ng/mL (37-417)
--- NOTE | 2025-01-12 14:28 | CASEMGMT ---
Care Management Face to Face with patient for initial transition planning/care coordination assessment in the ED.? This sign writer hand introduced self and role at [facility]. Patient alert and oriented. Patient willing to participate in assessment and is able to answer all questions appropriately.? Care providers, pharmacy, and demographics verified. Admitting Diagnosis: acute bilateral obstructive uropathy Other diagnosis history: acute kidney injury, bladder mass, severe anemia, gross hematuria PCP: ?None Specialists: ?None Preferred Pharmacy: [facility] pharmacy Insurance: ?Medicare Prescription Benefit: [employer] Living Will/HPOA: ?none completed LNOK: ?daughter Living Arrangements: ?Lives with significant other in a two story home, they only use the downstairs.? 4 steps to enter.? Patient denies need for assistance with ADLS Transportation: significant other drives DME: ?walk in shower, shower bench, grab bars in bathroom, blood pressure cuff HHC: ?none SNF/Rehab: ?none Community Resources: ?none Behavioral Health History: none Patient goals: Patient wishes to discharge home. ? Disposition Plan: admission to acute; RN CM/SW to follow for discharge planning needs that may arise. Emily Lowe, GARMENT MANUFACTURING SUPERVISOR, STRATEGY DIRECTOR
[2025-01-12] MEDS: Acetaminophen 325 MG Tablet 650 MG PO (19:49)
[2025-01-12] MEDS: oxyCODONE 5 MG Tablet PO (19:49)
[2025-01-12] MEDS: 0.9% Saline Lock 10 ML Syringe IV (19:50)
[2025-01-12] MEDS: MELATONIN 3 MG TABLET PO (20:42)
[2025-01-12] MEDS: hydrOXYzine PAM 25 MG Capsule PO (20:42)
[2025-01-12] MEDS: HYDROmorphone 0.5 MG/0.5 ML SYRINGE IV (21:01)
[2025-01-12] MEDS: Calcium Carbonate 500 MG Tablet PO (21:01)
[2025-01-12] MEDS: Oxybutynin 5 MG Tablet PO (22:26)
[2025-01-13] VITALS (18 sets, daily range): BP systolic 99–146; BP diastolic 63–92; PULSE 53–96; RESP 12–21; TEMP 36.6–37.1; O2SAT 97–100; BMI 24.5
[2025-01-13] MEDS: oxyCODONE 5 MG Tablet PO ×2 (03:37→11:25)
[2025-01-13] MEDS: Acetaminophen 325 MG Tablet 650 MG PO ×2 (03:37→11:26)
[2025-01-13] MEDS: HYDROmorphone 0.5 MG/0.5 ML SYRINGE IV ×2 (03:45→12:09)
[2025-01-13 04:00] LABS: Absolute Lymphocyte Count 1.49 X10^3/uL (0.83-4.51); Absolute Neutrophil Count 15.6 X10^3/uL (2.0-7.7); Basophil# 0.08 X10^3/uL; Basophil% 0.4 % (0-1); Eosinophil# 0.04 X10^3/uL; Eosinophils% 0.2 % (0-5); Hematocrit 28.2 % (40-54); Hemoglobin 9.6 g/dL (13.0-16.5); Lymphocyte # 1.49 X10^3/ul (0.83-4.51); Lymphocyte % 8.1 % (19-41); Mean Corpuscular Hgb 28.5 pg (27.0-32.0); Mean Corpuscular Volume 83.7 fL (80-94); Mean Platelet Vol. 8.6 fl (6.2-12.0); Monocyte# 1.06 X10^3/uL; Monocyte% 5.8 % (0-10); NRBC Flagged by Analyzer 0.2 % (0-5); Neutrophil # 15.56 X10^3/uL (2.7-7.7); Platelet Count 281 K/mm3 (150-450); RBC Distribution Width CV 14.7 % (11.6-14.6); RBC Distribution Width SD 45.2 fl (35.1-43.9); Red Blood Count 3.37 M/mm3 (4.6-6.2); White Blood Count 18.3 K/mm3 (4.4-11.0)
[2025-01-13 04:37] LABS: Anion Gap 9 (5-15); BUN 28 mg/dL (4-19); BUN/Creat Ratio 11.3 RATIO (10-20); Calcium,Total 7.4 mg/dL (7.6-11.0); Carbon Dioxide 20.1 mmol/L (21.0-32.0); Chloride 108 mmol/L (98-108); Creatinine, Serum 2.51 mg/dL (0.70-1.20); EST Glomerular Filtration Rate 28 (>60); Estimated Creatinine Clearance 27.07 ml/min (50-250); Glucose 122 mg/dL (70-99); Potassium 4.5 mmol/L (3.3-5.1); Sodium Level 137 mmol/L (133-145)
[2025-01-13] MEDS: hydrOXYzine PAM 25 MG Capsule PO ×2 (05:55→14:38)
[2025-01-13] MEDS: Oxybutynin 5 MG Tablet PO ×3 (05:55→22:55)
--- NOTE | 2025-01-13 09:33 | CASEMGMT ---
Social Work SW met w/pt in room in regard to completing LW/POA. Pt does not want to complete these documents at this time. SW did explain to pt the order of decision makers without completing the document. Pt states understanding. SW did give pt blank forms should he want to complete them in the future, also gave him the number for the SW dept to make an appointment if he would like assistance in completing the forms. Pt states understanding. JESSICA Mckeon
[2025-01-13] MEDS: Ceftriaxone 1 GM/50 ML BAG IV (10:28)
--- NOTE | 2025-01-13 11:43 | CON.PCM.UR_ITS ---
Assessment & Plan Assessment/Plan (1) Bladder mass: PLAN: 64-year-old male presented with severe anemia large bladder mass bilateral hydronephrosis acute renal insufficiency and bleeding. He has been stabilized in the ICU with blood transfusion he has a catheter and irrigating and urine is now fairly clear minimal bleeding at this point and he is clinically stable. Will put him on the schedule for Wednesday for a transurethral resection of this large bladder mass and bilateral stent placement. N.p.o. at midnight on Wednesday. (2) Hydronephrosis, bilateral: (3) Acute kidney injury: (4) Acute bilateral obstructive uropathy: HPI Consult Data Date of Consult: 01/13/25 HPI Narrative Reason for Consultation: Gross hematuria large bladder mass bilateral hydronephrosis HPI Narrative: SAI JAY, is a 64 M who presents to the hospital with gross hematuria he thinks he has been bleeding for about a month, presented with severe anemia he was transfused and resuscitated he had gross hematuria Freeman catheter was placed and he has been on continuous irrigation the urine is now clearing up and no heavy bleeding at this point. 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 I plan to take this patient to surgery on Wednesday for a cystoscopy transurethral section of the bladder mass and placement of bilateral stents. I told the patient that unfortunately you are appears to have an invasive cancer and I do not think it is possible to resect and remove these entire cancer with a transurethral approach but will try to debulk the tumor is much as possible and then he may have to consider either chemotherapy follow-up with surgery or chemotherapy followed with radiation therapy. He can probably follow-up as an outpatient with me and then we will also get in touch with oncology to see how the patient wants to proceed with further treatments. PFSH Medical History no medical history Home Medications ?Medication ?Instructions ?Recorded ?Last Taken ?Type NK 01/12/25 Unknown History Allergy/AdvReac Type Severity Reaction Status Date / Time No Known Allergies Allergy Verified 01/12/25 08:06 Social History Smoking Status: Current every day smoker tobacco type: cigarettes ROS Constitutional Constitutional: Denies chills, fever(s) or malaise Eyes Eyes: Denies blurry vision or change in vision ENT HEENT: Reports none Cardiovascular Cardiovascular: Denies chest pain or palpitations Respiratory/Chest Respiratory/Chest: Denies cough or shortness of breath with exertion Gastrointestinal Gastrointestinal: Denies abdominal pain, constipation or diarrhea Musculoskeletal Musculoskeletal: Denies back pain, joint stiffness or joint swelling Integumentary Integumentary: Denies dry skin, jaundice, lesions or rash Neurologic Neurologic: Denies confusion, syncope or weakness Psychiatric Psychiatric: Reports none; Denies anxiety or depression Endocrine Endocrinology: Denies excessive sweating, fatigue or flushing Hematologic/Lymphatic Hematologic/Lymphatic: Denies anemia, easy bleeding or easy bruising Physical Exam Const alert and oriented x3 General Appearance: cooperative HEENT normocephalic and head/scalp atraumatic Eyes PERRL and EOMs intact bilaterally Neck supple, no JVD and no carotid bruits Resp normal respiratory effort, normal air movement and clear to auscultation bilaterally Cardio regular rate and no murmurs GI normal to inspection, nondistended, normoactive bowel sounds and soft to palpation Extremity normal capillary refill General Extremity: no tenderness to palpation of joints or extremities; Negative for edema Skin no rashes or lesions noted and no wounds General Skin Exam: no breakdown Neuro CN's II-XII intact bilaterally Psych affect normal Appearance: appropriate Lab / Micro Data 01/13/25 03:55 01/13/25 03:55 Labs: Laboratory Results - last 24 hr 01/12/25 08:32: Iron 11 L, TIBC 355, Iron Saturation 3.1 L, Unsaturated IBC 344, Ferritin 12 L, PSA Screen 0.56 01/12/25 09:10: Blood Type B POSITIVE, Antibody Screen NEGATIVE, Crossmatch See Detail 01/13/25 03:55: WBC 18.3 H, RBC 3.37 L, Hgb 9.6 L, Hct 28.2 L, MCV 83.7, MCH 28.5, MCHC 34.0 D, RDW Std Deviation 45.2 H, RDW Coeff of Jodie 14.7 H, Plt Count 281, MPV 8.6, Immature Gran % (Auto) 0.500, Neut % (Auto) 85.0 H, Lymph % (Auto) 8.1 L, [place] % (Auto) 5.8, Eos % (Auto) 0.2, Baso % (Auto) 0.4, Absolute Neuts (auto) 15.6 H, Absolute Lymphs (auto) 1.49, Nucleated RBC % 0.2, Sodium 137, Potassium 4.5, Chloride 108, Carbon Dioxide 20.1 L, Anion Gap 9, BUN 28 H, C reatinine 2.51 H, Estim Creat Clear Calc 27.07 L, Est GFR (MDRD) Non-Af 28 L, BUN/Creatinine Ratio 11.3, Glucose 122 H, Calcium 7.4 L Micro: Microbiology 01/12/25 11:00 Urine, Clean Catch Urine Culture - Preliminary Culture exhibits no growth.
[2025-01-13] MEDS: 0.9% Saline Lock 10 ML Syringe IV (12:09)
--- NOTE | 2025-01-13 12:35 | NURSING ---
Pt complaining of pressure in his bowels. Acosta bag empty with CBI running. Assisted patient back to bed. Medicated patient see NOV. Manually irrigated acosta with Normal saline. No clots noted, reconnected acosta and urine/CBI began to drain with ease.
--- NOTE | 2025-01-13 12:52 | PN_ITS ---
Subjective Subjective Patient seen and examined. He had no active complaints. Hematuria has improved significantly. Review of systems otherwise negative. Objective Data Objective Data Vital Signs: Vital Signs Temp Pulse Resp BP Pulse Ox O2 Del Method 97.9 F 84 12 129/74 H 100 Room Air 01/13/25 11:00 01/13/25 11:00 01/13/25 11:00 01/13/25 11:00 01/13/25 11:00 01/13/25 11:00 Oxygen Delivery Method Room Air Weight: 156 lb 15.506 oz Body Mass Index (BMI) 24.5 Intake & Output: Intake and Output for Last 24 Hours 01/11/25 01/12/25 01/13/25 23:59 23:59 23:59 Intake Total 1950 / 1950 1890 / 1890 Output Total 1175 / 1175 700 / 700 Balance 775 / 775 1190 / 1190 Lab / Micro Data 01/13/25 03:55 01/13/25 03:55 Labs: Laboratory Results - last 24 hr 01/12/25 09:10: Blood Type B POSITIVE, Antibody Screen NEGATIVE, Crossmatch See Detail 01/13/25 03:55: WBC 18.3 H, RBC 3.37 L, Hgb 9.6 L, Hct 28.2 L, MCV 83.7, MCH 28.5, MCHC 34.0 D, RDW Std Deviation 45.2 H, RDW Coeff of Jodie 14.7 H, Plt Count 281, MPV 8.6, Immature Gran % (Auto) 0.500, Neut % (Auto) 85.0 H, Lymph % (Auto) 8.1 L, [place] % (Auto) 5.8, Eos % (Auto) 0.2, Baso % (Auto) 0.4, Absolute Neuts (auto) 15.6 H, Absolute Lymphs (auto) 1.49, Nucleated RBC % 0.2, Sodium 137, Potassium 4.5, Chloride 108, Carbon Dioxide 20.1 L, Anion Gap 9, BUN 28 H, C reatinine 2.51 H, Estim Creat Clear Calc 27.07 L, Est GFR (MDRD) Non-Af 28 L, BUN/Creatinine Ratio 11.3, Glucose 122 H, Calcium 7.4 L Micro: Microbiology 01/12/25 11:00 Urine, Clean Catch Urine Culture - Preliminary Culture exhibits no growth. Physical Exam Const alert, oriented x3 and no apparent distress Constitutional Narrative: looks much better today General Appearance: cooperative HEENT normocephalic, head/scalp atraumatic, hearing grossly normal bilaterally and moist oral mucous membranes Eyes PERRL, EOMs intact bilaterally and conjunctivae normal Neck no lymphadenopathy and supple Resp normal respiratory effort, normal air movement, no retractions, no use of accessory muscles and clear to auscultation bilaterally Cardio regular rate, regular rhythm, S1 normal heart sound, S2 normal heart sound and no murmurs GI normal to inspection, nondistended, normoactive bowel sounds, soft to palpation, non-tender and non-distended Extremity normal to inspection, full ROM, normal capillary refill and no clubbing, cyanosis or edema General Extremity: no tenderness to palpation of joints or extremities Neuro oriented x3, CN's II-XII intact bilaterally, moves all extremities and no focal motor deficits Sensorium / Orientation: awake and alert Motor Exam: strength 5/5 throughout Psych thought process normal, cooperative and affect normal Appearance: appropriate Assessment & Plan Assessment/Plan (1) Acute bilateral obstructive uropathy: (2) Acute kidney injury: (3) Bladder mass: (4) Gross hematuria: (5) Severe anemia: (6) Hydronephrosis, bilateral: PLAN: Plan #Acute anemia due to hematuria in the setting of bladder mass * Hemoglobin was 3.6 on admission. Hematuria had been going on for at least a month. * CT of the abdomen and pelvis showed a 4.8 cm urinary bladder mass highly suspicious for urothelial carcinoma with associated severe left and moderate to severe right hydroureteronephrosis with left renal parenchymal thickening and dense debris in the urinary bladder probably blood. No evidence of lymphadenopathy * Hemoglobin today is up to 9.6. He did receive 3 units of packed red blood cells. * Hematuria has cleared up. He is having continuous bladder irrigation. * Urology on board. For surgery on Wednesday. * #JULIO * Likely postrenal due to the obstructive uropathy on account of a bladder mass. * CT of the abdomen and pelvis did show bilateral hydronephrosis. * Cr is up to 2.51 from 2.3 yesterday. * Freeman catheter inserted. Undergoing continuous bladder irrigation. * Will trend creatinine and if it trends upwards further we will consult nephrology. * #DVT prophylaxis: SCDs CODE STATUS: Full code Disposition: transfer out of ICU to med surg Charges/Coding Visit Charges Inpatient E&M: 61664 Subs Hosp L2
--- NOTE | 2025-01-13 18:36 | NURSING ---
pt let his contact, Josefina, know about his transfer to [facility].
[2025-01-14 02:28] VITALS: BP 104/71; PULSE 67; RESP 16; TEMP 36.9; O2SAT 98
[2025-01-14 05:52] VITALS: BMI 22.7
[2025-01-14 06:32] LABS: Absolute Lymphocyte Count 1.23 X10^3/uL (0.83-4.51); Absolute Neutrophil Count 10.5 X10^3/uL (2.0-7.7); Basophil# 0.05 X10^3/uL; Basophil% 0.4 % (0-1); Eosinophil# 0.15 X10^3/uL; Eosinophils% 1.2 % (0-5); Hematocrit 25.9 % (40-54); Hemoglobin 8.7 g/dL (13.0-16.5); Lymphocyte # 1.23 X10^3/ul (0.83-4.51); Lymphocyte % 9.8 % (19-41); Mean Corp Hgb Conc 33.6 g/dL (32-36); Mean Corpuscular Hgb 28.2 pg (27.0-32.0); Mean Corpuscular Volume 84.1 fL (80-94); Mean Platelet Vol. 8.8 fl (6.2-12.0); Monocyte# 0.59 X10^3/uL; Monocyte% 4.7 % (0-10); NRBC Flagged by Analyzer 0 % (0-5); Neutrophil # 10.47 X10^3/uL (2.7-7.7); Neutrophil % 83.3 % (47-70); Platelet Count 306 K/mm3 (150-450); RBC Distribution Width CV 15.4 % (11.6-14.6); RBC Distribution Width SD 46.9 fl (35.1-43.9); Red Blood Count 3.08 M/mm3 (4.6-6.2); White Blood Count 12.6 K/mm3 (4.4-11.0)
[2025-01-14 06:50] LABS: Anion Gap 11 (5-15); BUN 30 mg/dL (4-19); BUN/Creat Ratio 10.7 RATIO (10-20); Calcium,Total 7.1 mg/dL (7.6-11.0); Carbon Dioxide 18.8 mmol/L (21.0-32.0); Chloride 107 mmol/L (98-108); Creatinine, Serum 2.83 mg/dL (0.70-1.20); EST Glomerular Filtration Rate 24 (>60); Glucose 92 mg/dL (70-99); Potassium 4.1 mmol/L (3.3-5.1); Sodium Level 138 mmol/L (133-145)
[2025-01-14] MEDS: Oxybutynin 5 MG Tablet PO ×3 (06:53→22:17)
[2025-01-14 08:00] VITALS: BP 108/69; PULSE 78; RESP 13; TEMP 36.7; O2SAT 97
[2025-01-14] MEDS: 0.9% Saline Lock 10 ML Syringe IV ×2 (09:00→22:16)
[2025-01-14] MEDS: 0.9% Normal Saline (100mL Bag) 100 ML 15 ML IV (09:00)
[2025-01-14] MEDS: Ceftriaxone 1 GM/50 ML BAG IV (09:01)
--- NOTE | 2025-01-14 10:24 | PN_ITS ---
Subjective Subjective Patient seen and examined. His significant other was by his bedside. He had no active complaints. Review of systems is otherwise negative. Hb today is 8.7. Objective Data Objective Data Vital Signs: Vital Signs Temp Pulse Resp BP Pulse Ox O2 Del Method 98.1 F 78 13 108/69 97 Room Air 01/14/25 08:00 01/14/25 08:00 01/14/25 08:00 01/14/25 08:00 01/14/25 08:00 01/14/25 08:00 Oxygen Delivery Method Room Air Weight: 145 lb 1.027 oz Body Mass Index (BMI) 22.7 Intake & Output: Intake and Output for Last 24 Hours 01/12/25 01/13/25 01/14/25 23:59 23:59 23:59 Intake Total 1950 / 1950 2250 / 2650 750.25 / 750.25 Output Total 1175 / 1175 750 / 750 Balance 775 / 775 1500 / 1900 750.25 / 750.25 Lab / Micro Data 01/14/25 05:45 01/14/25 05:45 Labs: Laboratory Results - last 24 hr 01/14/25 05:45: WBC 12.6 H, RBC 3.08 L, Hgb 8.7 L, Hct 25.9 L, MCV 84.1, MCH 28.2, MCHC 33.6, RDW Std Deviation 46.9 H, RDW Coeff of Jodie 15.4 H, Plt Count 306, MPV 8.8, Immature Gran % (Auto) 0.600, Neut % (Auto) 83.3 H, Lymph % (Auto) 9.8 L, [place] % (Auto) 4.7, Eos % (Auto) 1.2, Baso % (Auto) 0.4, Absolute Neuts (auto) 10.5 H, Absolute Lymphs (auto) 1.23, Nucleated RBC % 0, Sodium 138, Potassium 4.1, Chloride 107, Carbon Dioxide 18.8 L, Anion Gap 11, BUN 30 H, C reatinine 2.83 H, Estim Creat Clear Calc 23.90 L, Est GFR (MDRD) Non-Af 24 L, BUN/Creatinine Ratio 10.7, Glucose 92, Calcium 7.1 L Micro: Microbiology 01/12/25 11:00 Urine, Clean Catch Urine Culture - Preliminary Culture exhibits no growth. Physical Exam Const alert, oriented x3 and no apparent distress General Appearance: cooperative HEENT normocephalic, head/scalp atraumatic, hearing grossly normal bilaterally and moist oral mucous membranes Eyes PERRL, EOMs intact bilaterally and conjunctivae normal Neck no lymphadenopathy and supple Resp normal respiratory effort, normal air movement, no retractions, no use of accessory muscles and clear to auscultation bilaterally Cardio regular rate, regular rhythm, S1 normal heart sound, S2 normal heart sound and no murmurs GI normal to inspection, nondistended, normoactive bowel sounds, soft to palpation, non-tender and non-distended Extremity normal to inspection, full ROM, normal capillary refill and no clubbing, cyanosis or edema General Extremity: no tenderness to palpation of joints or extremities Skin General Skin Exam: no breakdown Neuro oriented x3, CN's II-XII intact bilaterally, moves all extremities and no focal motor deficits Sensorium / Orientation: awake and alert Motor Exam: strength 5/5 throughout and general weakness Psych thought process normal, cooperative and affect normal Appearance: appropriate Assessment & Plan Assessment/Plan (1) Acute bilateral obstructive uropathy: (2) Acute kidney injury: (3) Bladder mass: (4) Gross hematuria: (5) Severe anemia: (6) Hydronephrosis, bilateral: PLAN: Plan #Acute anemia due to hematuria in the setting of bladder mass * Hemoglobin was 3.6 on admission. Hematuria had been going on for at least a month. * CT of the abdomen and pelvis showed a 4.8 cm urinary bladder mass highly suspicious for urothelial carcinoma with associated severe left and moderate to severe right hydroureteronephrosis with left renal parenchymal thickening and dense debris in the urinary bladder probably blood. No evidence of lymphadenopathy * Hb today is 8.7. Received a total of 3 units of PRBCs. * urine has cleared up. * Urology on board. For surgery on Wednesday. * #JULIO * Likely postrenal due to the obstructive uropathy on account of a bladder mass. * CT of the abdomen and pelvis did show bilateral hydronephrosis. * Cr is up to 2.8 today. * acosta catheter in situ. * will consult nephrology due to Cr trending upwards. * * #DVT prophylaxis: SCDs CODE STATUS: Full code Disposition: transfer out of ICU to med surg Charges/Coding Visit Charges Inpatient E&M: 88917 Subs Hosp L2
--- NOTE | 2025-01-14 12:24 | PCM.CONS.B ---
Consult Date of Consult: 01/14/25 Reason for Consult Patient admitted for bleeding and anemia bilateral hydronephrosis large bladder mass he is on the schedule for tomorrow for resection of the large bladder mass n.p.o. at midnight plan to do resection bilateral stent placement if possible. To establish diagnosis and then we will have to do a plan of care for his advanced bladder cancer he will need to follow-up in the office after discharge.
[2025-01-14 14:45] VITALS: BP 109/66; PULSE 76; RESP 16; TEMP 37; O2SAT 97
[2025-01-14 22:12] VITALS: BP 112/76; PULSE 71; RESP 18; TEMP 36.7; O2SAT 100
[2025-01-15] VITALS (10 sets, daily range): BP systolic 113–143; BP diastolic 75–86; PULSE 66–74; RESP 12–20; TEMP 36.1–37; O2SAT 95–99; BMI 22.8
--- NOTE | 2025-01-15 06:00 | EKG12_ITS ---
Test Reason : pre op Blood Pressure : */* mmHG Vent. Rate : 68 BPM Atrial Rate : 68 BPM P-R Int : 164 ms QRS Dur : 88 ms QT Int : 406 ms P-R-T Axes : 29 10 3 degrees QTcB Int : 431 ms Normal sinus rhythm Normal ECG When compared with ECG of 17-Oct-2010 09:45, Criteria for Inferior infarct are no longer Present Confirmed by MONICO LYNN, LUCRETIA ([id number]), film editor supervisor RANDY SAAVEDRA ([id number]) on 01/15/2025 10:42:27 AM Referred By: Magali Confirmed By: LUCRETIA MARC MD
--- NOTE | 2025-01-15 07:12 | PCM.PN.HOSP ---
Reason for Visit Reason for Visit: Hematuria Subjective Subjective Patient on continuous bladder irrigation hematuria seems to be improving. Plan is for the OR later today. Patient denies any acute needs at this time and is just anxious to get his surgery over so he can eat and drink. Objective Data Objective Data Vital Signs: Vital Signs Temp Pulse Resp BP Pulse Ox O2 Del Method 97.9 F 70 16 114/79 99 Room Air 01/15/25 05:40 01/15/25 05:40 01/15/25 05:40 01/15/25 05:40 01/15/25 05:40 01/15/25 05:40 Oxygen Delivery Method Room Air Weight: 66 kg Body Mass Index (BMI) 22.8 Intake & Output: Intake and Output for Last 24 Hours 01/13/25 01/14/25 01/15/25 23:59 23:59 23:59 Intake Total 2250 / 2650 1365.00 / 1365.00 Output Total 750 / 750 1350 / 1350 Balance 1500 / 1900 15.00 / 15.00 Lab / Micro Data 01/15/25 06:20 01/15/25 06:20 Micro: Microbiology 01/12/25 11:00 Urine, Clean Catch Urine Culture - Final Culture exhibits no growth. Physical Exam Const alert, oriented x3, no apparent distress and average body habitus; Negative for healthy appearing Constitutional Narrative: Very pleasant, upper middle-aged, white male, lying in bed, appears older than stated age, family at bedside, appears comfortable, does not look toxic HEENT head/scalp atraumatic HEENT Narrative: Dentition is poor, Mallampati is 2, no thrush Head and Scalp: normocephalic Resp normal respiratory effort, no retractions, no use of accessory muscles and clear to auscultation bilaterally Resp Narrative: Diffusely diminished but clear Auscultation: Negative for rales, rhonchi or wheezes Cardio regular rate, regular rhythm, S1 normal heart sound, S2 normal heart sound, no murmurs, no rub, no gallops and no clicks GI normal to inspection, nondistended, normoactive bowel sounds, soft to palpation and non-tender Extremity no clubbing, cyanosis or edema Extremity Narrative: Pedal pulses are 2+ Neuro oriented x3, moves all extremities and no focal motor deficits Speech: speech normal Psych affect normal Psych Narrative: Very pleasant, eye contact is good, patient interacts appropriately Assessment & Plan Assessment/Plan (1) Acute kidney injury: (2) Gross hematuria: (3) Severe anemia: (4) Bladder mass: (5) Hydronephrosis, bilateral: (6) Acute bilateral obstructive uropathy: (7) Leukocytosis: PLAN: Plan Gross hematuria - CT of the abdomen pelvis showed a 4 point centimeter urinary bladder mass that was suspicious for urothelial carcinoma. This was associated with severe left and moderate to severe right hydronephrosis due to outlet obstruction -continue Freeman with continuous irrigation per urology - Plan is for OR today for mass resection - Suspect nephrostomy tubes as well with bilateral hydronephrosis but will await operative report -Hematuria seems to be clearing with continuous bladder irrigation but may worsen postoperatively depending on hemostasis following procedure - Continue to monitor Bladder mass -4.8 cm - Suspect related to urothelial cell carcinoma -Patient is a smoker at baseline - Urology is following and plan for OR later today -Await pathology postoperatively Severe symptomatic anemia - Hemoglobin on presentation was 3.6 - Was transfused 5 units of packed red blood cells - Not anticoagulated - Hemoglobin has stabilized in the 8-9 range currently - Repeat CBC in the a.m. for ongoing stabilization Leukocytosis - Urine and blood cultures have both been negative thus far - Will continue ceftriaxone for now and clarify duration with urology given recent instrumentation - Leukocytosis has resolved JULIO - Baseline creatinine is unknown - Serum creatinine on presentation was 2.30 - 5.23 today but still has urine output--> amount is unclear as he has been undergoing continuous bladder irrigation - Surgery today and hopefully with removal of mass renal function will improve - If kidney function does not improve we will pursue further workup and consider nephrology consultation Bilateral hydronephrosis secondary to obstructive uropathy -Suspect related to obstructive uropathy related to mass - Suspect stent placement during surgery if able - Will follow-up further with urology postoperative - If unable to place stents may need PERC tubes Tobacco abuse - Recommend cessation -will make nicotine patch available if patient requires DVT prophylaxis - SCDs -Chemoprophylaxis on hold due to bleeding CODE STATUS -Full code was verified on presentation Charges/Coding Visit Charges Inpatient E&M: 00997 Subs Hosp L2
[2025-01-15 07:39] LABS: Absolute Lymphocyte Count 1.37 X10^3/uL (0.83-4.51); Absolute Neutrophil Count 8.1 X10^3/uL (2.0-7.7); Basophil# 0.06 X10^3/uL; Basophil% 0.6 % (0-1); Eosinophil# 0.24 X10^3/uL; Eosinophils% 2.3 % (0-5); Hematocrit 27.3 % (40-54); Hemoglobin 8.9 g/dL (13.0-16.5); Lymphocyte # 1.37 X10^3/ul (0.83-4.51); Lymphocyte % 13.4 % (19-41); Mean Corp Hgb Conc 32.6 g/dL (32-36); Mean Corpuscular Hgb 28.3 pg (27.0-32.0); Mean Corpuscular Volume 86.7 fL (80-94); Monocyte# 0.49 X10^3/uL; Monocyte% 4.8 % (0-10); NRBC Flagged by Analyzer 0 % (0-5); Neutrophil # 8.05 X10^3/uL (2.7-7.7); Neutrophil % 78.5 % (47-70); Platelet Count 298 K/mm3 (150-450); RBC Distribution Width CV 15.6 % (11.6-14.6); RBC Distribution Width SD 49.1 fl (35.1-43.9); Red Blood Count 3.15 M/mm3 (4.6-6.2); White Blood Count 10.3 K/mm3 (4.4-11.0)
[2025-01-15 07:45] LABS: International Normalized Ratio 1.2; Prothrombin Time (Protime)PT. 15.5 SECONDS (11.7-14.9)
[2025-01-15 07:46] LABS: Partial Thromboplast Time 33.1 Seconds (24.1-36.2)
[2025-01-15 08:15] LABS: Anion Gap 12 (5-15); BUN 41 mg/dL (4-19); BUN/Creat Ratio 7.9 RATIO (10-20); Calcium,Total 7.1 mg/dL (7.6-11.0); Carbon Dioxide 18.4 mmol/L (21.0-32.0); Chloride 106 mmol/L (98-108); Creatinine, Serum 5.23 mg/dL (0.70-1.20); EST Glomerular Filtration Rate 11 (>60); Estimated Creatinine Clearance 12.97 ml/min (50-250); Glucose 97 mg/dL (70-99); Potassium 4.2 mmol/L (3.3-5.1); Sodium Level 137 mmol/L (133-145)
[2025-01-15] MEDS: Ceftriaxone 1 GM/50 ML BAG IV (09:29)
[2025-01-15] MEDS: 0.9% Normal Saline (1000mL) 1,000 ML 15 ML IV ×3 (11:00→14:38)
--- NOTE | 2025-01-15 11:59 | PCM.PRE.AN2 ---
ASA Classification* ASA Classification ASA Classification: 2 Assessment & Plan Anesthesia* Anesthesia Assessment Anesthesia Assessment: Discussed sedation and/or anesthesia options, risks, benefits, and alternatives with patient/parents/legal guardian/POA. Questions invited. The patient/parents/legal guardian/POA seems to understand and agrees to proceed with anesthesia plan. Reviewed the physical assessment, medical history, allergy history and patient home medications list prior to surgery/procedure/anesthetic and documented any changes. Performed airway and anesthesia risk assessments. Anesthesia Type Anesthesia Type: General (Surgeon request intubation, paralysis) Anesthesia Focused Assessment* Temperature: 98.6 F Pulse Rate: 67 Blood Pressure: 113/80 Respiratory Rate: 14 Pulse Ox: 98 Airway Assessment Mouth opens: >3 cm Mallampati Score: II Focused Labs Anesthesia Preop lab: CBC WBC 10.3 K/mm3 (4.4-11.0) 01/15/25 06:20 01/15/25 RBC 3.15 M/mm3 (4.6-6.2) L 01/15/25 06:20 01/15/25 Hgb 8.9 g/dL (13.0-16.5) L 01/15/25 06:20 01/15/25 Hct 27.3 % (40-54) L 01/15/25 06:20 01/15/25 Plt Count 298 K/mm3 (150-450) 01/15/25 06:20 01/15/25 CHEMISTRY Potassium 4.2 mmol/L (3.3-5.1) 01/15/25 06:20 01/15/25 Sodium 137 mmol/L (133-145) 01/15/25 06:20 01/15/25 BUN 41 mg/dL (4-19) H 01/15/25 06:20 01/15/25 Creatinine 5.23 mg/dL (0.70-1.20) H 01/15/25 06:20 01/15/25 Glucose 97 mg/dL (70-99) 01/15/25 06:20 01/15/25 COAG PT 15.5 SECONDS (11.7-14.9) H 01/15/25 06:20 01/15/25 Pre-Assessment Diagnosis/Proposed Procedure Planned Operative Procedure(s): Cystoscopy. Transurethral resection of bladder tumor. Stent placement. Anesthesia History Anesthesia History - [facility] plans staff officer: Anesthesia History - [facility] plans staff officer Hx Hospitalization Any Problems With Anesthesia No 01/14/25 22:11 Cholinesterase deficiency No 01/14/25 22:11 You/Your Family Experience No 01/14/25 22:11 fever (hyperthermia) with Relationship Recent Exposure to Contagious No 01/14/25 22:11 Disease Does patient have nerve No 01/14/25 22:11 stimulator Patient instructed to have device shut off --Does patient have Pacemaker or ICD? When Was Last Pacemaker Check QUESTION #4 FULL TEXT: You/Your Family Experience fever (hyperthermia) with Anesthesia Last Oral Intake Last Oral intake: Last Oral Intake NPO since Meds taken in AM with sips of water? Meds patient instructed to take am of surgery PONV PONV - [employer] plans staff officer: PONV - [employer] plans staff officer Female HX of Motion Sickness HX of N/V After Surgery Non-Smoker Duration of Surgery greater than 60 minutes Number of Risk Factors PONV Score Height & Weight Height & Weight: Anesthesia: Height & Weight Height 5 ft 7 in 01/12/25 14:26 Weight: 66 kg 01/15/25 06:00 Body Mass Index (BMI) 22.8 01/15/25 06:00 Respiratory Assessment Respiratory Assessment - [employer] plans staff officer: Respiratory Tract Infection Hx - [employer] plans staff officer Hx Respiratory Tract Infection No 01/14/25 22:11 STOP Sleep Apnea STOP Sleep Apnea - [employer] plans staff officer: STOP Sleep Apnea - [employer] plans staff officer Hx Hypertension No 01/13/25 10:47 Hx Sleep Apnea No 01/12/25 11:51 CPAP BIPAP Do you snore loudly (louder No 01/12/25 11:51 than talking or can be heard Do you often feel tired/ No 01/12/25 11:51 fatigued/ sleepy during daytime? Has anyone observed you stop No 01/12/25 11:51 breathing during sleep? STOP Results Negative 01/12/25 11:51 QUESTION #5 FULL TEXT : Do you snore loudly (louder than talking or can be heard through closed doors)? Tobacco Use History Tobacco Use History - [employer] plans staff officer: Tobacco Use History - [employer] plans staff officer Tobacco Use Smoking Status Current every day smoker 01/13/25 10:39 Hx Tobacco Use Yes 01/12/25 11:51 Years Smoking Packs Smoked per Day 1 01/12/25 11:51 Smoking Cessation Date was within the last 15 years Hx Smoking Cessation Date Hx Smoking Cessation Counseling Hematologic Medial History Hematologic Hx - [employer] plans staff officer: Hematologic Medical Hx - prop sawyer Hx of Blood Transfusion No 01/12/25 11:51 Hx of Transfusion in last 3 No 01/12/25 11:51 Months Date of Last Transfusion (if within last 3 months) Ever experience any problems No 01/12/25 11:51 with transfusion(s)? Specify any problems Hx of Preganancy in last 3 N/A 01/12/25 11:51 Months Nurse Filling Out Transfusion CGERBER 01/12/25 11:51 & Questions: Date: 01/12/25 01/12/25 11:51 Time: 12:14 01/12/25 11:51 Patient unable to answer at this time (ie. confused, unrespo /Reproduction History /Reproductive History - [employer] plans staff officer: /Reproductive Hx- [facility] plans staff officer Hx Now Gestational Age (in weeks): EDC: Hx Hx Para Hx Section SAB Active Medications Active Medications: Current Medications Generic Name Dose Route Start Last Admin Trade Name Freq PRN Reason Stop Dose Admin Acetaminophen 650 mg 01/12/25 11:49 01/13/25 11:26 Acetaminophen 325 Mg Tablet PO 650 mg Q6H PRN PRN Administration Pain 1-10 Or Fever >100.7 Calcium Carbonate 500 mg 01/12/25 20:46 01/12/25 21:01 Calcium Carbonate 500 Mg Tablet PO 500 mg Q6H PRN PRN Administration HEARTBURN OR INDIGESTION Hydromorphone HCl 0.5 mg 01/12/25 20:42 01/13/25 12:09 Hydromorphone 0.5 Mg/0.5 Ml Syringe IV 0.5 mg Q4H PRN PRN Administration Pain Score 6-10 Hydroxyzine Pamoate 25 mg 01/12/25 20:23 01/13/25 14:38 Hydroxyzine Jane 25 Mg Capsule PO 25 mg TID PRN PRN Administration ANXIETY/RESTLESSNESS/SLEEP Sodium Chloride 100 mls @ 15 mls/hr 01/12/25 11:54 01/14/25 10:30 IV 0 mls/hr .Q6H40M PRN Infusion Saline Flush Sodium Chloride 100 mls @ 15 mls/hr 01/12/25 11:54 IV .Q6H40M PRN Additional IVPB Infusion Ceftriaxone Sodium 1 gm in 50 mls @ 100 mls/hr 01/13/25 10:00 01/15/25 10:00 Rocephin IV Infused Q24 ANUEL Infusion Sodium Chloride 1,000 mls @ 15 mls/hr 01/15/25 11:00 01/15/25 11:00 IV 15 mls/hr .Q48H ANUEL Administration Sodium Chloride 1,000 mls @ 15 mls/hr 01/15/25 12:00 IV .Q48H ANUEL Melatonin 3 mg 01/12/25 20:23 01/12/25 20:42 Melatonin 3 Mg Tablet PO 3 mg QHS PRN Administration SLEEP Nitroglycerin 0.4 mg 01/12/25 11:49 Nitroglycerin (Inpatient Use) 0.4 Mg Tab.Subl SL Q5M PRN CARDIAC/CHEST PAIN Ondansetron HCl 4 mg 01/12/25 11:49 Ondansetron 4 Mg/2 Ml Vial IV Q8H PRN PRN NAUSEA/VOMITING Oxybutynin Chloride 5 mg 01/12/25 20:30 01/15/25 05:50 Oxybutynin 5 Mg Tablet PO Not Given TID ANUEL Oxycodone HCl 5 mg 01/12/25 11:49 01/13/25 11:25 Oxycodone 5 Mg Tablet PO 5 mg Q4H PRN PRN Administration Pain Score 4-10 Sodium Chloride 10 - 40 ml 01/12/25 11:54 01/14/25 22:16 0.9% Saline Lock 10 Ml Syringe IV 10 ml UD PRN Administration SALINE FLUSH PFSH Medical History no medical history Home Medications ?Medication ?Instructions ?Recorded ?Last Taken ?Type NK 01/12/25 Unknown History Allergy/AdvReac Type Severity Reaction Status Date / Time No Known Allergies Allergy Verified 01/12/25 08:06 Social History Smoking Status: Current every day smoker tobacco type: cigarettes Review of Systems (Anesthesia) ROS Narrative System reviewed and no additional complaints, except as documented.
--- NOTE | 2025-01-15 12:00 | BLA_PTH ---
PATIENT: SAI JAY Jr. LOC: MS3 U#:[id number] AGE/SX: 64/M ROOM: [facility] [place]/[address]: Dr. Magalys Dumas DO : 1960 BED: 1 DIS: 01/18/2025 SPEC #: [id number] RECD: 01/15/25 14:32 STATUS: JIMMIE REQ #: [id number] JHONNY: 01/15/25 12:[address]: Darrell Mota DEPT: SURGICAL PATHOLOGY RECD BY: Shad Paris ENTERED: 01/15/25 14:32 SP TYPE: BLADDER BX OTHR DR: DO Dr. Awilda Dahl MD No Primary Care Phys Tissues: A - Urinary bladder, NOS Procedures: Surgery Specimen Level V Comments: @ Ordering doctor for SUIV edited from to @ by MIKE at 01/15/25 1433 @ Submitting doctor edited from to @ by MIKE at 01/15/25 1433 HEADER OPERATION: Cystoscopy, transurethral resection of bladder of large bladder mass PRE-OP DIAGNOSIS: Acute bilateral obstructive uropathy, acute kidney injury, bladder mass, gross hematuria, severe anemia, hydronephrosis, bilateral TISSUE SUBMITTED: A- Resected bladder mass MICROSCOPIC DIAGNOSIS A. Bladder, mass, transurethral resection: * Invasive urothelial carcinoma, high grade * Lamina propria is positive for malignancy * Muscularis propria is positive for malignancy MICROSCOPIC DESCRIPTION Slides are reviewed. GROSS DESCRIPTION A. Received in formalin in a container labeled with the patient's name, date of , and resected bladder mass are multiple mckeon-pink and friable fragments of soft tissue admixed with blood clot material measuring 10.7 g together and 6.5 x 4.7 x 1.8 cm in aggregate. Submitted in toto in A1-7. B 01/15/2025 CPT:04309 ADDENDUM ADDENDUM ADDENDUM ADDENDUM ADDENDUM ADDENDUM ADDENDUM ADDENDUM ADDENDUM ADDENDUM ADDENDUM 03/13/2025 16:06 ADDENDUM 03/13/2025 16:06 ADDENDUM 03/13/2025 16:06 ADDENDUM 03/13/2025 16:06 ADDENDUM 03/13/2025 16:06 This addendum is added to incorporate an outside pathology consultation report. The case was examined at [facility] by Dr. Reid (#[id number]) and the following diagnosis was rendered. A. Urinary bladder, mass, transurethral resection: Urothelial carcinoma, invasive, high-grade. Muscularis propria invasion is present (at least pT2). Please see complete above mentioned consultation report in EMR
--- NOTE | 2025-01-15 12:54 | OP.PCM_ITS ---
Operative Report (Standard) Operative Information Date of Procedure: 01/15/25 Pre-Operative Diagnosis: Large invasive bladder mass Post-Operative Diagnosis: The same Surgery/Procedure Performed: Transurethral resection of a large bladder mass planer setup operator: No Type of Anesthesia: General RN Documented Start/Stop Times: Operation Date: 01/15/25 12:00 Case Time Into Pre-Op 01/15/25 10:56 Anesthesia Start 01/15/25 12:05 Into Room 01/15/25 12:05 Procedure Start 01/15/25 12:21 Procedure End 01/15/25 12:51 Procedure Start Time: 12: Procedure Stop Time: 12:54 Select all DRAINS/GRAFTS/IMPLANTS that apply: Drains Drain details: 24 [place]ian three-way Freeman Estimated Blood Loss: 50cc Specimen collected: Yes Description of specimen(s) removed: Bladder tissue Description of surgery: Patient is taken back to the operating room after smooth induction of anesthesia he was placed in dorsolithotomy position on CAT scan he is found to have a large bladder mass that to the floor and trigone of the bladder he is got bilateral hydronephrosis the initial plan today is to do a cystoscopy and possibly place a stent on both sides and reresection of this bladder mass. Patient was taken back to the operative room at this with duction of anesthesia he was placed in dorsolithotomy position went in the bladder with a 26 [place]ian continuous-flow resectoscope he had a large mass in the trigone of the bladder and the base of the bladder going up on the patient's left side I was not able to identify either the left or the right ureteral orifice unable to place stents so he will need nephrostomy tubes. I then resected the mass down into the muscle fibers and also it looked like the mass was invading into the fat of the bladder appeared to be a invasive large bladder mass after resecting the mass then I cauterized extensively to obtain hemostasis and then I placed a 24 [place]ian catheter into the bladder on continuous bladder irrigation he was taken back to the PACU in stable condition. Surgical Findings: Invasive bladder mass unable to find the left and right ureteral orifice unable to place nephrostomy tubes Complications Complications: No
--- NOTE | 2025-01-15 12:57 | PCM.PN.BLA ---
Progress Note Patient underwent resection of a large bladder mass unable to place stents he does have acute renal insufficiency bilateral hydronephrosis I am going to order CT-guided placement of both left and right nephrostomy tube placement today after surgery I was not able to decompress his kidneys he does have elevated creatinine which is getting worse. The mass appeared to be invasive bladder cancer.
--- NOTE | 2025-01-15 13:17 | PCM.POST.ANE ---
Anesthesia: Postop Eval I Current Vital Signs Temperature: 97.7 F Pulse Rate: 72 Blood Pressure: 139/80 Respiratory Rate: 20 Pulse Ox: 96 Oxygen Delivery Method: Room Air Assessment Airway patent: Yes Spontaneous unlabored respirations: Yes Mental status: Awake and Calm nausea: No Vomiting: No Anesthesia Complication: No Fluid Hydration Crystalloid volume administer (ml): 1,000 Total IV fluid infused: 1,000 Progress Note Anesthesia document: Postop Eval 1 completed: Yes
--- NOTE | 2025-01-15 13:59 | POSTOPAN2_ITS ---
Anesthesia Postop Eval I Sum Postop Eval Completion status Anesthesia document: Postop Eval 1 completed: Yes Anesthesia Postop Eval I Summary Anesthesia Postop Eval I Summary: Anesthesia Postop Eval I: Assessment Summary Airway patent Yes 01/15/25 13:18 STEAMBOAT PILOT.DBAK Spontaneous unlabored Yes 01/15/25 13:18 STEAMBOAT PILOT.DBAK respirations Mental status Awake,Calm 01/15/25 13:18 STEAMBOAT PILOT.DBAK nausea No 01/15/25 13:18 STEAMBOAT PILOT.DBAK Vomiting No 01/15/25 13:18 STEAMBOAT PILOT.DBAK Anesthesia Postop Eval I: Fluid Summary Crystalloid volume administer 1,000 01/15/25 13:18 STEAMBOAT PILOT.DBAK (ml) Colloids volume administered ( ml) Blood Product volume administered (ml) Total IV fluid infused 1,000 01/15/25 13:18 STEAMBOAT PILOT.DBAK Anesthesia Postop Eval I: Summary Notes Anesthesia Complication No 01/15/25 13:18 STEAMBOAT PILOT.DBAK Anesthesia Complication Comment: Post-operative progress note Anesthesia: Postop Eval II Evaluation Mental status: Awake Pain Level: 0 nausea: No Vomiting: No
--- NOTE | 2025-01-15 13:59 | PCM.POSTANE2 ---
Anesthesia Postop Eval I Sum Postop Eval Completion status Anesthesia document: Postop Eval 1 completed: Yes Anesthesia Postop Eval I Summary Anesthesia Postop Eval I Summary: Anesthesia Postop Eval I: Assessment Summary Airway patent Yes 01/15/25 13:18 SENIOR PARTNER.DBAK Spontaneous unlabored Yes 01/15/25 13:18 SENIOR PARTNER.DBAK respirations Mental status Awake,Calm 01/15/25 13:18 SENIOR PARTNER.DBAK nausea No 01/15/25 13:18 SENIOR PARTNER.DBAK Vomiting No 01/15/25 13:18 SENIOR PARTNER.DBAK Anesthesia Postop Eval I: Fluid Summary Crystalloid volume administer 1,000 01/15/25 13:18 SENIOR PARTNER.DBAK (ml) Colloids volume administered ( ml) Blood Product volume administered (ml) Total IV fluid infused 1,000 01/15/25 13:18 SENIOR PARTNER.DBAK Anesthesia Postop Eval I: Summary Notes Anesthesia Complication No 01/15/25 13:18 SENIOR PARTNER.DBAK Anesthesia Complication Comment: Post-operative progress note Anesthesia: Postop Eval II Evaluation Mental status: Awake Pain Level: 0 nausea: No Vomiting: No
[2025-01-15] MEDS: Oxybutynin 5 MG Tablet PO ×2 (16:02→21:17)
[2025-01-15] MEDS: oxyCODONE 5 MG Tablet PO ×2 (16:02→20:04)
[2025-01-15] MEDS: Acetaminophen 325 MG Tablet 650 MG PO (16:02)
[2025-01-15] MEDS: MELATONIN 3 MG TABLET PO (21:17)
[2025-01-16] VITALS (28 sets, daily range): BP systolic 80–140; BP diastolic 28–93; PULSE 56–66; RESP 14–25; TEMP 36.5–37.2; O2SAT 95–100; BMI 22.8
[2025-01-16 04:51] LABS: Hematocrit 26.4 % (40-54); Hemoglobin 8.8 g/dL (13.0-16.5); Mean Corp Hgb Conc 33.3 g/dL (32-36); Mean Corpuscular Hgb 28.5 pg (27.0-32.0); Mean Corpuscular Volume 85.4 fL (80-94); Mean Platelet Vol. 8.9 fl (6.2-12.0); Platelet Count 297 K/mm3 (150-450); RBC Distribution Width CV 15.2 % (11.6-14.6); RBC Distribution Width SD 47.9 fl (35.1-43.9); Red Blood Count 3.09 M/mm3 (4.6-6.2)
[2025-01-16 05:24] LABS: Magnesium 2.6 mg/dL (1.5-2.2); Phosphorus 6.9 mg/dL (2.7-4.5)
[2025-01-16 05:26] LABS: ALB/GLOB Ratio 1.4 RATIO (0.9-2.4); AST(SGOT) 12 U/L (<=37); Alanine Aminotransfer ALT/SGPT 5 U/L (<=46); Alkaline Phosphatase 82 U/L (40-129); Anion Gap 15 (5-15); BUN 57 mg/dL (4-19); Calcium,Total 6.6 mg/dL (7.6-11.0); Carbon Dioxide 15.9 mmol/L (21.0-32.0); Chloride 105 mmol/L (98-108); Creatinine, Serum 7.12 mg/dL (0.70-1.20); EST Glomerular Filtration Rate 8 (>60); Estimated Creatinine Clearance 9.53 ml/min (50-250); Globulin 2.1 g/dL (2.2-4.2); Glucose 180 mg/dL (70-99); Potassium 5.4 mmol/L (3.3-5.1); Sodium Level 136 mmol/L (133-145); Total Bilirubin 0.23 mg/dL (0.00-1.30)
--- NOTE | 2025-01-16 06:57 | PCM.PN.HOSP ---
Reason for Visit Reason for Visit: Hematuria Subjective Subjective Patient was seen and interventional radiology post nephrostomy tube placement. Unfortunately they were only able to get a left nephrostomy tube in. They did indicate maybe could try on the right side again later. Will repeat BMP this afternoon to assess renal function now that the left side is opened up. Creatinine should start to improve with drainage via the left nephrostomy tube. Patient is reporting some minimal pain but seems to be comfortable at this time. Did have Versed and fentanyl for the procedure. Hemoglobin is stable. Objective Data Objective Data Vital Signs: Vital Signs Temp Pulse Resp BP Pulse Ox O2 Del Method 98.5 F 60 16 116/73 99 Room Air 01/16/25 02:05 01/16/25 02:05 01/16/25 02:05 01/16/25 02:05 01/16/25 02:05 01/16/25 02:05 Oxygen Delivery Method Room Air Weight: 66.2 kg Body Mass Index (BMI) 22.8 Intake & Output: Intake and Output for Last 24 Hours 01/14/25 01/15/25 01/16/25 23:59 23:59 23:59 Intake Total 1365.00 / 1365.00 304.75 / 304.75 Output Total 1350 / 1350 3000 / 3550 1350 / 1350 Balance 15.00 / 15.00 -2695.25 / -3245.25 -1350 / -1350 Medical Nutrition Assessment Dietitian: Malnutrition Criteria Met Start: 01/15/25 14:12 Freq: Status: Active Protocol: Document 01/15/25 14:12 SLA (Rec: 01/15/25 14:12 SLA [email or web address]) Nutrition Malnutrition Evidence of Yes Malnutrition Exists Malnutrition (severe Acute Illness/Injury ): Evidenced By Suboptimal Energy Intake (Severe),Weight Loss (Severe) Intake Problem Inadequate Oral Intake Status Inactive Problem Clinical Problem Acute Disease or Injury Related Malnutrition Etiology related to acute illness Signs/Symptoms as evidenced by 6.4% unintended wt loss and po intake meeting <50% of est nutritional needs x ~ 5 days Status Active Problem Recommendation Dietitian Continue liberalized diet to Regular w/ 8 oz chocolate Recommendations/ EPHP tid w/ meals d/t wt loss and suboptimal po intake Changes at meals Lab / Micro Data 01/16/25 03:47 01/16/25 03:47 Labs: Laboratory Results - last 24 hr 01/15/25 06:20: WBC 10.3, RBC 3.15 L, Hgb 8.9 L, Hct 27.3 L, MCV 86.7, MCH 28.3, MCHC 32.6, RDW Std Deviation 49.1 H, RDW Coeff of Jodie 15.6 H, Plt Count 298, MPV 9.0, Immature Gran % (Auto) 0.400, Neut % (Auto) 78.5 H, Lymph % (Auto) 13.4 L, [place] % (Auto) 4.8, Eos % (Auto) 2.3, Baso % (Auto) 0.6, Absolute Neuts (auto) 8.1 H, Absolute Lymphs (auto) 1.37, Nucleated RBC % 0, PT 15.5 H, INR 1.2, APTT 33.1, Sodium 137, Potassium 4.2, Chloride 106, Carbon Dioxide 18.4 L, Anion Gap 12, BUN 41 H, Creatinine 5.23 H, Estim Creat Clear Calc 12.97 L, Est GFR (MDRD) Non-Af 11 L, BUN/Creatinine Ratio 7.9 L, Glucose 97, Calcium 7.1 L 01/16/25 03:47: WBC 10.0, RBC 3.09 L, Hgb 8.8 L, Hct 26.4 L, MCV 85.4, MCH 28.5, MCHC 33.3, RDW Std Deviation 47.9 H, RDW Coeff of Jodie 15.2 H, Plt Count 297, MPV 8.9, Sodium 136, Potassium 5.4 H, Chloride 105, Carbon Dioxide 15.9 L, Anion Gap 15, BUN 57 H, Creatinine 7.12 H, Estim Creat Clear Calc 9.53 L*, Est GFR (MDRD) Non-Af 8 L, BUN/Creatinine Ratio 8.0 L, Glucose 180 H, Calcium 6.6 L, Phosphorus 6.9 H, Magnesium 2.6 H, Total Bilirubin 0.23, AST 12, ALT 5, Alkaline Phosphatase 82, Total Protein 5.0 L, Albumin 3.0 L, Globulin 2.1 L, Albumin/Globulin Ratio 1.4 Micro: Microbiology 01/13/25 09:27 Blood Culture (Wb) - Anticubital Left Blood Culture - Preliminary No growth in 48 hours. 01/13/25 09:27 Blood Culture (Wb) - Anticubital Right Blood Culture - Preliminary No growth in 48 hours. 01/12/25 11:00 Urine, Clean Catch Urine Culture - Final Culture exhibits no growth. Physical Exam Const alert, oriented x3, no apparent distress and average body habitus; Negative for healthy appearing Constitutional Narrative: Very pleasant, upper middle-aged, white male, lying in bed, appears older than stated age, appears comfortable, still mildly sedated but interacts and recalls details related to his procedure General Appearance: cooperative HEENT normocephalic, head/scalp atraumatic and moist oral mucous membranes HEENT Narrative: Dentition is poor, Mallampati is 2, no thrush Resp normal respiratory effort, normal air movement, no retractions, no use of accessory muscles and clear to auscultation bilaterally Resp Narrative: Diffusely diminished but clear Auscultation: Negative for rales, rhonchi or wheezes Cardio regular rate, regular rhythm, S1 normal heart sound, S2 normal heart sound, no murmurs, no rub, no gallops and no clicks GI normal to inspection, nondistended, normoactive bowel sounds and soft to palpation GI Narrative: Mild diffuse tenderness related to procedure yesterday and today, left flank with nephrostomy tube in place Extremity no clubbing, cyanosis or edema Extremity Narrative: Pedal pulses are 2+ Neuro oriented x3, moves all extremities and no focal motor deficits Sensorium / Orientation: awake and alert Speech: speech normal Psych thought process normal, cooperative and affect normal Psych Narrative: Very pleasant, eye contact is good, patient interacts appropriately Appearance: appropriate Mood & Affect: anxious Assessment & Plan Assessment/Plan (1) Acute kidney injury: (2) Gross hematuria: (3) Severe anemia: (4) Bladder mass: (5) Hydronephrosis, bilateral: (6) Acute bilateral obstructive uropathy: (7) Leukocytosis: PLAN: Plan Gross hematuria - CT of the abdomen pelvis showed a 4 point centimeter urinary bladder mass that was suspicious for urothelial carcinoma. This was associated with severe left and moderate to severe right hydronephrosis due to outlet obstruction -continue Freeman with continuous irrigation per urology - Patient went to the OR yesterday and had transurethral resection of large bladder mass -Pathology is pending -Ureteral stents were not able to be placed and the ureteral orifices were not able to be found -Nephrostomy tubes ordered and placed only on the left side and tried on the right but placement not successful -If renal function does not improve with the left-sided nephrostomy tube IR indicates they will retry the right -Hematuria seems to be clearing with continuous bladder irrigation but may worsen postoperatively depending on hemostasis following procedure - Continue to monitor Bladder mass -4.8 cm - Suspect related to urothelial cell carcinoma -Pathology is pending -Patient is a smoker at baseline - Postop day transurethral resection of bladder mass - Discussed with Dr. Mota Severe symptomatic anemia -Resolved and current hemoglobin is 8.8 and stable - Hemoglobin on presentation was 3.6 - Was transfused 5 units of packed red blood cells - Repeat CBC in the a.m. Leukocytosis - Resolved - Will plan on discontinuation of antibiotics tomorrow if okay with urology JULIO secondary to obstructive uropathy - Baseline creatinine is unknown - Serum creatinine on presentation was 2.30 - 7.12 today but still has urine output--> amount is unclear as he has been undergoing continuous bladder irrigation - Unfortunately stents were not able to be placed intraoperatively and nephrostomy tubes had to be ordered -Only able to get in the left nephrostomy tube -Repeat BMP at 1400--> if creatinine improves may be able to get away with only placing 1 nephrostomy tube if not may need to pursue the right side again - No current need for nephrology unless dialysis is needed as patient should clinically improved with nephrostomy tube placement Mild hyperkalemia secondary to JULIO - Nephrostomy tube placed today - Repeat BMP at 1400 after nephrostomy tube placement Metabolic acidosis - Secondary to renal dysfunction -should improve as renal function improves - Repeat BMP pending for later today Bilateral hydronephrosis secondary to obstructive uropathy -Suspect related to obstructive uropathy related to mass - Stents not able to be placed intraoperatively -Nephrostomy tubes today--> only able to get left side in -May need repeat trial on the right side if renal function does not improve - Discussed with urology today Tobacco abuse - Recommend cessation -will make nicotine patch available if patient requires DVT prophylaxis - SCDs -Chemoprophylaxis on hold due to bleeding CODE STATUS -Full code was verified on presentation Charges/Coding Visit Charges Inpatient E&M: 45898 Subs Hosp L2
--- NOTE | 2025-01-16 08:30 | CT_ITS ---
PROCEDURE: NEPHROTUBE PLACEMENT CT 01/16/2025 REASON FOR EXAM: BILATERAL HYDRONEPHROSIS TECHNIQUE: CT of the abdomen without IV contrast. One or more dose reduction techniques were used (e.g., Automated exposure control, adjustment of the mA and/or kV according to patient size, use of iterative reconstruction technique). Right percutaneous nephrostomy tube placement. The procedure as well as the benefits and possible complications including infection and bleeding were explained to the patient. Informed consent was obtained. The patient was in the prone position. The overlying skin was prepped and draped in the usual sterile fashion. Conscious sedation was performed. The patient received 3 mg of Versed and 50 mcg of fentanyl intravenously. The patient was independently monitored by the department nurse. Several attempts were made for percutaneous nephrostomy placement. There was extravasation of the contrast material limiting visualization. A repeat examination will be performed if the patient is renal functions do not improve. RADIATION DOSE SUMMARY: CTDlvol: 17 mGy DLP: 873.8 mGycm COMPARISON: Prior study dated January 12, 2025. FINDINGS: Attempted right percutaneous nephrostomy placement. CT/Nephrotube Placement CT IMPRESSION: Attempted right percutaneous nephrostomy placement. Reading Location: [place] [id number]
--- NOTE | 2025-01-16 08:30 | CT_ITS ---
PROCEDURE: NEPHROTUBE PLACEMENT CT 01/16/2025 REASON FOR EXAM: BILAT HYDRONEPHROSIS TECHNIQUE: CT of the abdomen without IV contrast followed by CT of the abdomen and pelvis with intravenous contrast. One or more dose reduction techniques were used (e.g., Automated exposure control, adjustment of the mA and/or kV according to patient size, use of iterative reconstruction technique). Left nephrostomy tube placement. The procedure as well as the benefits and possible complications including infection and bleeding were explained to the patient. Informed consent was obtained. Conscious sedation was performed. The patient received 2 mg of Versed and 50 mcg fentanyl intravenously. Conscious sedation was started at 9:09 a.m. and terminated 10:12 a.m.. The patient was independently monitored by the department nurse. The overlying skin was prepped and draped in the usual sterile fashion. Following local anesthetic application, puncture of the left renal collecting system was performed with an 18 gauge Chiba needle. Following appropriate tract dilatation, an 8.5 [place] all-purpose drainage catheter was placed into the renal collecting system. The patient tolerated the procedure well. RADIATION DOSE SUMMARY: CTDlvol: 18.99 mGy DLP: 873.84 mGycm COMPARISON: Prior CT scan dated January 12, 2025. FINDINGS: Successful left percutaneous nephrostomy tube placement. CT/Nephrotube Placement CT IMPRESSION: Successful left percutaneous nephrostomy tube placement. Reading Location: [place] [address]
[2025-01-16] MEDS: Midazolam 2 MG/2 ML Syringe IV ×2 (09:09→09:44)
[2025-01-16] MEDS: fentaNYL 100 MCG/2 ML Ampul IV ×2 (09:12→09:47)
[2025-01-16] MEDS: Lidocaine 2% (20 ml mdv) 20 ML Vial INFILT (09:21)
[2025-01-16] MEDS: Ceftriaxone 1 GM/50 ML BAG IV (11:52)
[2025-01-16] MEDS: Ondansetron 4 MG/2 ML Vial IV (11:53)
[2025-01-16] MEDS: proCHLORPERazine 10 MG/2 ML Vial 5 MG IV (13:56)
[2025-01-16] MEDS: Oxybutynin 5 MG Tablet PO ×2 (14:31→21:06)
[2025-01-16 16:53] LABS: Anion Gap 17 (5-15); BUN 63 mg/dL (4-19); BUN/Creat Ratio 8.2 RATIO (10-20); Calcium,Total 6.8 mg/dL (7.6-11.0); Carbon Dioxide 14.8 mmol/L (21.0-32.0); Chloride 106 mmol/L (98-108); EST Glomerular Filtration Rate 7 (>60); Estimated Creatinine Clearance 8.86 ml/min (50-250); Glucose 149 mg/dL (70-99); Sodium Level 138 mmol/L (133-145)
[2025-01-16 17:04] LABS: Creatinine, Serum 7.67 mg/dL (0.70-1.20)
[2025-01-16] MEDS: Sodium Polystyrene Sulfonate 15 GM/60 ML UDC PO (18:39)
[2025-01-16] MEDS: MELATONIN 3 MG TABLET PO (21:06)
[2025-01-16] MEDS: oxyCODONE 5 MG Tablet PO (21:06)
[2025-01-17] VITALS (18 sets, daily range): BP systolic 107–130; BP diastolic 56–81; PULSE 59–70; RESP 16–18; TEMP 36.3–36.7; O2SAT 33–100; BMI 22.8
[2025-01-17] MEDS: Oxybutynin 5 MG Tablet PO ×3 (05:29→19:55)
[2025-01-17 07:35] LABS: Absolute Lymphocyte Count 1.25 X10^3/uL (0.83-4.51); Basophil# 0.04 X10^3/uL; Basophil% 0.3 % (0-1); Eosinophil# 0.17 X10^3/uL; Eosinophils% 1.4 % (0-5); Hematocrit 28.8 % (40-54); Hemoglobin 9.1 g/dL (13.0-16.5); Lymphocyte # 1.25 X10^3/ul (0.83-4.51); Lymphocyte % 10.3 % (19-41); Mean Corp Hgb Conc 31.6 g/dL (32-36); Mean Corpuscular Hgb 27.7 pg (27.0-32.0); Mean Corpuscular Volume 87.5 fL (80-94); Mean Platelet Vol. 8.8 fl (6.2-12.0); Monocyte# 0.62 X10^3/uL; Monocyte% 5.1 % (0-10); NRBC Flagged by Analyzer 0 % (0-5); Neutrophil # 10.01 X10^3/uL (2.7-7.7); Neutrophil % 82.2 % (47-70); Platelet Count 338 K/mm3 (150-450); RBC Distribution Width CV 15.7 % (11.6-14.6); RBC Distribution Width SD 50.5 fl (35.1-43.9); Red Blood Count 3.29 M/mm3 (4.6-6.2); White Blood Count 12.2 K/mm3 (4.4-11.0)
--- NOTE | 2025-01-17 07:59 | PN_ITS ---
Progress Note 64-year-old male with invasive bladder cancer on discharge will need to follow- up with oncology to evaluate cancer and to discuss options of treatment. He had bilateral nephrostomy tubes placed yesterday creatinine is pending. I will be headed out of town so I will be signing off for now when the bleeding is stopped we can stop irrigation.
[2025-01-17 08:03] LABS: Anion Gap 16 (5-15); BUN 69 mg/dL (4-19); BUN/Creat Ratio 7.8 RATIO (10-20); Calcium,Total 6.6 mg/dL (7.6-11.0); Carbon Dioxide 15.8 mmol/L (21.0-32.0); Chloride 106 mmol/L (98-108); EST Glomerular Filtration Rate 6 (>60); Glucose 104 mg/dL (70-99); Potassium 4.9 mmol/L (3.3-5.1); Sodium Level 138 mmol/L (133-145)
[2025-01-17 08:10] LABS: Creatinine, Serum 8.82 mg/dL (0.70-1.20)
--- NOTE | 2025-01-17 08:11 | CT_ITS ---
PROCEDURE: NEPHROTUBE PLACEMENT CT 01/17/2025 REASON FOR EXAM: R HYDRONEPHROSIS WITH WORSENING SCR TECHNIQUE: Right percutaneous nephrostomy tube placement. The procedure as well as the benefits and possible complications including infection and bleeding were explained to the patient. Informed consent was obtained. The patient was in the right posterior oblique position. The overlying skin was prepped and draped in the usual sterile fashion. Conscious sedation was performed. The patient received 2 mg of Versed and 50 mcg of fentanyl intravenously. Conscious sedation was started at 11:02 a.m. and terminated at 11:34 a.m.. The patient was independently monitored by the department nurse. Initial puncture was performed with an 18 gauge biopsy needle. Following this, appropriate tract dilatation was performed. A 8.5 [place] drainage catheter was placed into the right renal pelvis and proximal right ureter. There is evidence of perinephric stranding in keeping with a postprocedural hematoma from prior attempt. One or more dose reduction techniques were used (e.g., Automated exposure control, adjustment of the mA and/or kV according to patient size, use of iterative reconstruction technique). RADIATION DOSE SUMMARY: CTDlvol: 15 mGy DLP: 925.11 mGycm COMPARISON: Prior study dated January 16, 2025. FINDINGS: Successful right percutaneous nephrostomy catheter. CT/Nephrotube Placement CT IMPRESSION: Successful percutaneous right nephrostomy catheter placement. No immediate pos toperative complication noted. Reading Location: [place] [address]
--- NOTE | 2025-01-17 08:18 | PN.HOSP_ITS ---
Reason for Visit Reason for Visit: Hematuria Subjective Subjective Patient denied any overnight issues. Serum creatinine up so right nephrostomy tube was requested in place today with good output. Objective Data Objective Data Vital Signs: Vital Signs Temp Pulse Resp BP Pulse Ox O2 Del Method 97.9 F 65 18 112/62 99 Room Air 01/17/25 07:42 01/17/25 07:42 01/17/25 07:42 01/17/25 07:42 01/17/25 07:42 01/17/25 07:42 Oxygen Delivery Method Room Air Weight: 66.281 kg Body Mass Index (BMI) 22.8 Intake & Output: Intake and Output for Last 24 Hours 01/15/25 01/16/25 01/17/25 23:59 23:59 23:59 Intake Total 304.75 / 304.75 50 / 50 Output Total 3000 / 3550 1766 / 1766 100 / 100 Balance -2695.25 / -3245.25 -1716 / -1716 -100 / -100 Medical Nutrition Assessment Dietitian: Malnutrition Criteria Met Start: 01/15/25 14:12 Freq: Status: Active Protocol: Document 01/15/25 14:12 SLA (Rec: 01/15/25 14:12 SLA [email or web address]) Nutrition Malnutrition Evidence of Yes Malnutrition Exists Malnutrition (severe Acute Illness/Injury ): Evidenced By Suboptimal Energy Intake (Severe),Weight Loss (Severe) Intake Problem Inadequate Oral Intake Status Inactive Problem Clinical Problem Acute Disease or Injury Related Malnutrition Etiology related to acute illness Signs/Symptoms as evidenced by 6.4% unintended wt loss and po intake meeting <50% of est nutritional needs x ~ 5 days Status Active Problem Recommendation Dietitian Continue liberalized diet to Regular w/ 8 oz chocolate Recommendations/ EPHP tid w/ meals d/t wt loss and suboptimal po intake Changes at meals Lab / Micro Data 01/17/25 07:01 01/17/25 18:10 Labs: Laboratory Results - last 24 hr 01/16/25 16:15: Sodium 138, Potassium 5.0, Chloride 106, Carbon Dioxide 14.8 L, Anion Gap 17 H, BUN 63 H, Creatinine 7.67 H*, Estim Creat Clear Calc 8.86 L*, E st GFR (MDRD) Non-Af 7 L, BUN/Creatinine Ratio 8.2 L, Glucose 149 H, Calcium 6.8 L 01/17/25 07:01: WBC 12.2 H, RBC 3.29 L, Hgb 9.1 L, Hct 28.8 L, MCV 87.5, MCH 27.7, MCHC 31.6 L D, RDW Std Deviation 50.5 H, RDW Coeff of Jodie 15.7 H, Plt Count 338, MPV 8.8, Immature Gran % (Auto) 0.700, Neut % (Auto) 82.2 H, Lymph % (Auto) 10.3 L, [place] % (Auto) 5.1, Eos % (Auto) 1.4, Baso % (Auto) 0.3, Absolute Neuts (auto) 10.0 H, Absolute Lymphs (auto) 1.25, Nucleated RBC % 0, Sodium 138, Potassium 4.9, Chloride 106, Carbon Dioxide 15.8 L, Anion Gap 16 H, BUN 69 H, C reatinine 8.82 H*, Estim Creat Clear Calc 7.70 L*, Est GFR (MDRD) Non-Af 6 L, B UN/Creatinine Ratio 7.8 L, Glucose 104 H, Calcium 6.6 L Micro: Microbiology 01/13/25 09:27 Blood Culture (Wb) - Anticubital Left Blood Culture - Preliminary No growth in 48 hours. 01/13/25 09:27 Blood Culture (Wb) - Anticubital Right Blood Culture - Preliminary No growth in 48 hours. 01/12/25 11:00 Urine, Clean Catch Urine Culture - Final Culture exhibits no growth. Radiography Diagnostic Testing: Radiology Impression Nephrostomy Tube Change 01/16/25 08:30 IMPRESSION: Attempted right percutaneous nephrostomy placement. Reading Location: [facility]--1 Nephrostomy Tube Change 01/16/25 08:30 IMPRESSION: Successful left percutaneous nephrostomy tube placement. Reading Location: [facility]- Physical Exam Const alert, oriented x3, no apparent distress and average body habitus; Negative for healthy appearing Constitutional Narrative: Very pleasant, upper middle-aged, white male, lying in bed, appears comfortable, nontoxic, friend/family at bedside General Appearance: cooperative HEENT normocephalic, head/scalp atraumatic, hearing grossly normal bilaterally and moist oral mucous membranes HEENT Narrative: Dentition is poor, Mallampati 2 Resp normal respiratory effort, normal air movement, no retractions, no use of accessory muscles and clear to auscultation bilaterally Resp Narrative: Diffusely diminished but clear Auscultation: Negative for rales, rhonchi or wheezes Cardio regular rate, regular rhythm, S1 normal heart sound, S2 normal heart sound, no murmurs, no rub, no gallops and no clicks GI normal to inspection, nondistended, normoactive bowel sounds, soft to palpation and non-tender GI Narrative: Bilateral nephrostomy tubes in place with good drainage Extremity no clubbing, cyanosis or edema Extremity Narrative: Pedal pulses are 2+ Neuro oriented x3, moves all extremities and no focal motor deficits Speech: speech normal Psych affect normal Psych Narrative: Very pleasant, eye contact is good, patient interacts appropriately Mood & Affect: anxious Assessment & Plan Assessment/Plan (1) Acute kidney injury: (2) Gross hematuria: (3) Severe anemia: (4) Bladder mass: (5) Hydronephrosis, bilateral: (6) Acute bilateral obstructive uropathy: (7) Leukocytosis: PLAN: Plan Hematuria - Hematuria has resolved -discontinue Freeman as continuous bladder irrigation has been discontinued -Discussed case with urology Invasive urothelial cell carcinoma high-grade -4.8 cm - Pathology reported out as invasive urothelial cell carcinoma high-grade with lamina propria positive for malignancy and muscularis propria positive for malignancy -Plan is for outpatient follow-up to discuss overall plan of care - Discussed with Dr. Mota Severe symptomatic anemia -Resolved and current hemoglobin is 9.1 - Hemoglobin on presentation was 3.6 - Was transfused 5 units of packed red blood cells for the hospitalization - Repeat CBC in the a.m. JULIO secondary to obstructive uropathy - Baseline creatinine is unknown - Serum creatinine on presentation was 2.30 -8.82 today -Nephrostomy tubes placed and anticipate trend down as he now has good drainage -Plan is to discharge with nephrostomy tubes in place and okay to hold Freeman per discussion with urology Mild hyperkalemia secondary to JULIO -Resolved Metabolic acidosis -Resolving with improved renal function - Repeat in a.m. Bilateral hydronephrosis secondary to obstructive uropathy -Resolved with placement of bilateral nephrostomy tubes Tobacco abuse - Recommend cessation -will make nicotine patch available if patient requires DVT prophylaxis -Continue SCDs -Chemoprophylaxis on hold due to bleeding CODE STATUS -Full code Charges/Coding Visit Charges Inpatient E&M: 78545 Subs Hosp L2
[2025-01-17 08:41] LABS: Allen Test Positive; Base Excess -9 mmol/L (-2 to +2); Bicarbonate 16.7 mmol/L (22-26); Blood Gas Specimen Type ART; Mode Not entered; O2 Delivery Device Room Air; PO2 80 mmHG (75-100); SITE R Radial; SO2 96 % (95-99); Total Carbon Dioxide 18 mmol/L; pCO2 28.7 mmHg (35-45); pH 7.37 (7.35-7.45)
[2025-01-17] MEDS: Midazolam 2 MG/2 ML Syringe IV ×2 (11:02→11:18)
[2025-01-17] MEDS: fentaNYL 100 MCG/2 ML Ampul IV (11:04)
[2025-01-17] MEDS: Ondansetron 4 MG/2 ML Vial IV (11:05)
--- NOTE | 2025-01-17 11:18 | CASEMGMT ---
Insurance review for hospitals In-network with?[employer] [facility] insurance if transfer is recommended is as follows: [facility], [facility], [facility], [facility], [facility], , [place], [facility], [facility], and [place]. Funmilayo Cruz, Discharge Planning Asst.
[2025-01-17] MEDS: Lidocaine 2% (20 ml mdv) 20 ML Vial INFILT (11:20)
[2025-01-17 19:07] LABS: Anion Gap 15 (5-15); BUN 60 mg/dL (4-19); BUN/Creat Ratio 9.7 RATIO (10-20); Calcium,Total 7.1 mg/dL (7.6-11.0); Carbon Dioxide 19.4 mmol/L (21.0-32.0); Chloride 103 mmol/L (98-108); Creatinine, Serum 6.17 mg/dL (0.70-1.20); EST Glomerular Filtration Rate 9 (>60); Estimated Creatinine Clearance 11.01 ml/min (50-250); Glucose 167 mg/dL (70-99); Potassium 4.8 mmol/L (3.3-5.1); Sodium Level 137 mmol/L (133-145)
[2025-01-17] MEDS: Acetaminophen 325 MG Tablet 650 MG PO (19:54)
[2025-01-17] MEDS: oxyCODONE 5 MG Tablet PO (19:54)
[2025-01-18 02:13] VITALS: BP 109/66; PULSE 67; RESP 14; TEMP 36.5; O2SAT 99
[2025-01-18 06:00] VITALS: BMI 22.9
[2025-01-18] MEDS: Oxybutynin 5 MG Tablet PO (06:08)
[2025-01-18 07:01] LABS: Hematocrit 27.3 % (40-54); Hemoglobin 8.8 g/dL (13.0-16.5); Mean Corp Hgb Conc 32.2 g/dL (32-36); Mean Corpuscular Hgb 27.8 pg (27.0-32.0); Mean Corpuscular Volume 86.4 fL (80-94); Platelet Count 353 K/mm3 (150-450); RBC Distribution Width CV 15.6 % (11.6-14.6); Red Blood Count 3.16 M/mm3 (4.6-6.2); White Blood Count 9.5 K/mm3 (4.4-11.0)
[2025-01-18 07:15] LABS: Anion Gap 10 (5-15); BUN 41 mg/dL (4-19); BUN/Creat Ratio 12.3 RATIO (10-20); Calcium,Total 7.3 mg/dL (7.6-11.0); Carbon Dioxide 20.8 mmol/L (21.0-32.0); Chloride 110 mmol/L (98-108); EST Glomerular Filtration Rate 20 (>60); Estimated Creatinine Clearance 20.59 ml/min (50-250); Glucose 99 mg/dL (70-99); Magnesium 2.3 mg/dL (1.5-2.2); Phosphorus 3.4 mg/dL (2.7-4.5); Potassium 5.5 mmol/L (3.3-5.1); Sodium Level 141 mmol/L (133-145)
[2025-01-18 07:34] VITALS: O2SAT 97
[2025-01-18 07:45] VITALS: BP 108/72; PULSE 70; RESP 18; TEMP 36.8; O2SAT 99
[2025-01-18] MEDS: Acetaminophen 325 MG Tablet 650 MG PO (07:49)
[2025-01-18] MEDS: oxyCODONE 5 MG Tablet PO (07:49)
--- NOTE | 2025-01-18 08:02 | PCM.PN.GU ---
Subjective Subjective Status post right nephrostomy tube placement and also left nephrostomy tube. He has a very high output from the right nephrostomy tube which might make sense since this is the side that was not blocked by tumor. 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 I think we can remove the Freeman catheter and I think he can go home today if stable by hospitalist with bilateral nephrostomy tubes in place his creatinine is improving greatly he needs to call and make an appointment to see me for follow-up next week in the office. You can call me by cell phone if you have any questions. Objective Data Objective Data Vital Signs: Vital Signs Temp Pulse Resp BP Pulse Ox O2 Del Method 97.7 F L 67 14 109/66 97 Room Air 01/18/25 02:13 01/18/25 02:13 01/18/25 02:13 01/18/25 02:13 01/18/25 07:34 01/18/25 07:34 Oxygen Delivery Method Room Air Weight: 66.4 kg Body Mass Index (BMI) 22.9 Intake & Output: Intake and Output for Last 24 Hours 01/16/25 01/17/25 01/18/25 23:59 23:59 23:59 Intake Total 50 / 50 925 / 925 Output Total 1766 / 1766 2600 / 3575 3205 / 3205 Balance -1716 / -1716 -2600 / -2925 -2280 / -2280 Medical Nutrition Assessment Dietitian: Malnutrition Criteria Met Start: 01/15/25 14:12 Freq: Status: Active Protocol: Document 01/15/25 14:12 SLA (Rec: 01/15/25 14:12 SLA [email or web address]) Nutrition Malnutrition Evidence of Yes Malnutrition Exists Malnutrition (severe Acute Illness/Injury ): Evidenced By Suboptimal Energy Intake (Severe),Weight Loss (Severe) Intake Problem Inadequate Oral Intake Status Inactive Problem Clinical Problem Acute Disease or Injury Related Malnutrition Etiology related to acute illness Signs/Symptoms as evidenced by 6.4% unintended wt loss and po intake meeting <50% of est nutritional needs x ~ 5 days Status Active Problem Recommendation Dietitian Continue liberalized diet to Regular w/ 8 oz chocolate Recommendations/ EPHP tid w/ meals d/t wt loss and suboptimal po intake Changes at meals Lab / Micro Data 01/18/25 05:46 01/18/25 05:46 Labs: Laboratory Results - last 24 hr 01/17/25 07:01: Sodium 138, Potassium 4.9, Chloride 106, Carbon Dioxide 15.8 L, Anion Gap 16 H, BUN 69 H, Creatinine 8.82 H*, Estim Creat Clear Calc 7.70 L*, Est GFR (MDRD) Non-Af 6 L, BUN/Creatinine Ratio 7.8 L, Glucose 104 H, Calcium 6.6 L 01/17/25 15:40: Sodium Cancelled, Potassium Cancelled, Chloride Cancelled, Carbon Dioxide Cancelled, Anion Gap Cancelled, BUN Cancelled, Creatinine Cancelled, Estim Creat Clear Calc Cancelled, Est GFR (MDRD) Non-Af Cancelled, BUN/Creatinine Ratio Cancelled, Glucose Cancelled, Calcium Cancelled 01/17/25 18:10: Sodium 137, Potassium 4.8, Chloride 103, Carbon Dioxide 19.4 L, Anion Gap 15, BUN 60 H, Creatinine 6.17 H, Estim Creat Clear Calc 11.01 L, Est GFR (MDRD) Non-Af 9 L, BUN/Creatinine Ratio 9.7 L, Glucose 167 H, Calcium 7.1 L 01/18/25 05:46: WBC 9.5, RBC 3.16 L, Hgb 8.8 L, Hct 27.3 L, MCV 86.4, MCH 27.8, MCHC 32.2, RDW Std Deviation 50.0 H, RDW Coeff of Jodie 15.6 H, Plt Count 353, MPV 9.0, Sodium 141, Potassium 5.5 H, Chloride 110 H, Carbon Dioxide 20.8 L, Anion Gap 10, BUN 41 H, Creatinine 3.30 H, Estim Creat Clear Calc 20.59 L, Est GFR (MDRD) Non-Af 20 L, BUN/Creatinine Ratio 12.3, Glucose 99, Calcium 7.3 L, Phosphorus 3.4, Magnesium 2.3 H Micro: Microbiology 01/13/25 09:27 Blood Culture (Wb) - Anticubital Left Blood Culture - Preliminary No growth in 48 hours. 01/13/25 09:27 Blood Culture (Wb) - Anticubital Right Blood Culture - Preliminary No growth in 48 hours. 01/12/25 11:00 Urine, Clean Catch Urine Culture - Final Culture exhibits no growth. ABG Data ABG results: ABG 01/17/25 08:38 Specimen Type ART Sample Site R Radial pH 7.37 Bicarbonate Actual 16.7 L Total CO2 18 Base Excess -9 L O2 Saturation 96 ABG pCO2 28.7 L ABG pO2 80 Jw Test Positive O2 Delivery Device Room Air Vent Mode Not entered Radiography Diagnostic Testing: Radiology Impression Nephrostomy Tube Change 01/17/25 08:11 IMPRESSION: Successful percutaneous right nephrostomy catheter placement. No immediate postoperative complication noted. Reading Location: [facility]
--- NOTE | 2025-01-18 09:58 | CASEMGMT ---
LOCO CM into pt room, pt sitting up in bed in no distress. Pt denies any homegoing needs. Pt feels he will be fine at home managing the nephrostomy tubes. Pt states he has seen the nurses empty them. He is aware that the nurse will review with him prior to dc. Pt states his fiance will also be able to assist him at home.
[2025-01-18] MEDS: Sodium Polystyrene Sulfonate 15 GM/60 ML UDC PO (10:04)
[2025-01-18 12:23] LABS: Anion Gap 12 (5-15); BUN 32 mg/dL (4-19); BUN/Creat Ratio 12.4 RATIO (10-20); Calcium,Total 7.2 mg/dL (7.6-11.0); Carbon Dioxide 20.1 mmol/L (21.0-32.0); Chloride 106 mmol/L (98-108); Creatinine, Serum 2.57 mg/dL (0.70-1.20); EST Glomerular Filtration Rate 27 (>60); Estimated Creatinine Clearance 26.43 ml/min (50-250); Glucose 131 mg/dL (70-99); Potassium 4.6 mmol/L (3.3-5.1); Sodium Level 138 mmol/L (133-145)
--- NOTE | 2025-01-18 12:55 | PCM.DC.SUM ---
Providers Date of Admission: 01/12/25 Date of Discharge: 01/18/25 Primary Care Physician: No Primary Care Phys Consultations 01/12/25 12:06 Consult: Urology Routine Consulting Provider: Darrell Mota Reason for Consult: Hematuria EMERGENT Consult: No Notified: Yes Date Notified: 01/12/25 Time Notified: 12:06 Method of Notification: Verbal 01/12/25 13:05 Consult: Urology Routine Consulting Provider: Darrell Mota Reason for Consult: hematuria, bladder mass EMERGENT Consult: No MD Notified: Yes Date Notified: 01/12/25 Time Notified: 14:21 Method of Notification: ED Physician Initiated Reason For Visit: ACUTE ANEMIA DUE TO HEMATURIA Diagnosis Discharge Diagnosis (1) Acute kidney injury: Status: Acute Code(s): N17.9 - Acute kidney failure, unspecified (2) Gross hematuria: Status: Acute Code(s): R31.0 - Gross hematuria (3) Severe anemia: Status: Acute Code(s): D64.9 - Anemia, unspecified (4) Bladder mass: Status: Acute Code(s): N32.89 - Other specified disorders of bladder (5) Hydronephrosis, bilateral: Status: Acute Code(s): N13.30 - Unspecified hydronephrosis (6) Acute bilateral obstructive uropathy: Status: Acute Code(s): N13.9 - Obstructive and reflux uropathy, unspecified (7) Leukocytosis: Status: Acute Code(s): D72.829 - Elevated white blood cell count, unspecified Medications at Discharge Home Medications acetaminophen 325 mg tablet 650 mg (2 x 325 mg) PO Q6H PRN PRN Pain 1-10 Or Fever >100.7 #0 tabs 01/18/25 oxycodone 5 mg tablet 5 mg PO Q4H PRN PRN Pain Score 4-10 5 days #30 tabs 01/18/25 Hospital Course Operations - (Transurethral resection of a large bladder mass/B Nephrostomy Tubes) Procedures Blood transfusion Summary of Care Provided Minutes Spent on Discharge: 37 Hospital Course: Mr. Knight is a 64-year-old white male who presented to emergency department at [facility] on 01/12/2025 with gross hematuria that has been going on for at least a month prior to admission. He indicated at the time of admission he had not seen a doctor in years. He indicated the hematuria worsened and persisted so he decided to be evaluated in the emergency department. He does not have a primary care physician. He had no other symptoms. Vital signs at the time of presentation demonstrated temperature of 97.2, heart rate 106, respiratory rate 19, blood pressure is 105/52 and pulse ox is 98% on room air. CBC at the time of presentation showed a normal white count but he had a hemoglobin of 3.6 and a platelet count of 479,000. Coags were unremarkable. BMP showed JULIO with a BUN [address] a [address]Cr 2.51. CT abd and pelvis 4.8 cm urinary bladder that was suspicious for urothelial cell carcinoma and was associated with severe left and moderate to severe right hydro ureteral nephrosis with left renal parenchymal thinning and dense debris in the urinary bladder that was suspicious for blood. Patient was admitted to the intensive care unit initially due to his markedly low hemoglobin and transfused 5 units packed red blood cells. Urology was consulted and he was taken to the OR for resection of his bladder tumor on 01/15/2025 at which time the transurethral resection of large bladder tumor was performed. Pathology resulted and showed invasive urothelial cell carcinoma that is high-grade with lamina propria and muscularis propria invasion. During surgical procedure urethral stents were not able to be placed as the orifice was not able to be identified. The patient was sent for nephrostomy tubes. Initial attempt was on 01/16/2025 at which time only a left nephrostomy tube was able to be placed. Unfortunately this was not enough to make an improvement in his serum creatinine and decompress his system. Given this, he was sent back for a right nephrostomy tube which was able to be placed with good success on 01/17/2025. We do suspect he probably has some damage to his left kidney with the cortical thinning and that is why the isolated left nephrostomy tube was not as beneficial. With the placement of the right nephrostomy tube he had considerable drop in his serum creatinine. His peak serum creatinine during his hospitalization was 8.82 on 01/17/2025. At the time of discharge 36 hours after nephrostomy tube placement his serum creatinine was down to 2.57 his electrolytes have normalized. Bilateral nephrostomy tubes were maintained at the time of discharge and care was explained to patient and family. Freeman catheter was removed. Patient was sent home with some pain medication and he is to follow-up with Dr. Mota next week early in the week to discuss overall management of his bladder cancer. Patient was discharged home in stable condition on 01/18/2025. Discharge diagnoses: Hematuria-resolved Invasive urothelial cell carcinoma high-grade Severe symptomatic anemia-resolved JULIO secondary to obstructive uropathy Bilateral hydroureteronephrosis Hyperkalemia Metabolic acidosis Tobacco abuse Physical Exam Const alert, oriented x3, no apparent distress, average body habitus and no limitations; Negative for healthy appearing or well nourished Constitutional Narrative: Very pleasant, upper middle-aged, white male, sitting up in bed, watching TV, appears comfortable, nontoxic General Appearance: cooperative, comfortable, well kempt and well developed Exam Limitations: no limitations Nutritional Appearance: thin HEENT normocephalic, head/scalp atraumatic, hearing grossly normal bilaterally and moist oral mucous membranes HEENT Narrative: Dentition is poor, Mallampati is 2, no thrush Eyes EOMs intact bilaterally Eyes Narrative: Mild conjunctival pallor bilaterally, no scleral icterus Neck supple Neck Narrative: Trachea midline Resp normal respiratory effort, normal air movement, no retractions, no use of accessory muscles and clear to auscultation bilaterally Resp Narrative: Diffusely diminished but clear Auscultation: Negative for rales, rhonchi or wheezes Cardio regular rate, regular rhythm, S1 normal heart sound, S2 normal heart sound, no murmurs, no rub, no gallops and no clicks GI normal to inspection, nondistended, normoactive bowel sounds, soft to palpation, non-tender and non-distended GI Narrative: Bilateral nephrostomy tubes in place with good drainage especially noted on the right side Extremity no clubbing, cyanosis or edema Extremity Narrative: Pedal pulses are 2+ Skin skin turgor normal, no jaundice, no petechiae and no mottling Neuro oriented x3, moves all extremities and no focal motor deficits Speech: speech normal Psych thought process normal, cooperative and affect normal Psych Narrative: Very pleasant, eye contact is good, patient interacts appropriately Appearance: appropriate Medical Records Data Medical Nutrition Assessment Dietitian: Malnutrition Criteria Met Start: 01/15/25 14:12 Freq: Status: Active Protocol: Document 01/15/25 14:12 SLA (Rec: 01/15/25 14:12 SLA [email or web address]) Nutrition Malnutrition Evidence of Yes Malnutrition Exists Malnutrition (severe Acute Illness/Injury ): Evidenced By Suboptimal Energy Intake (Severe),Weight Loss (Severe) Intake Problem Inadequate Oral Intake Status Inactive Problem Clinical Problem Acute Disease or Injury Related Malnutrition Etiology related to acute illness Signs/Symptoms as evidenced by 6.4% unintended wt loss and po intake meeting <50% of est nutritional needs x ~ 5 days Status Active Problem Recommendation Dietitian Continue liberalized diet to Regular w/ 8 oz chocolate Recommendations/ EPHP tid w/ meals d/t wt loss and suboptimal po intake Changes at meals Weight / BMI Weight Weight: 66.4 kg Body Mass Index (BMI) 22.9 ABG / Lab / Microbiology Data 01/18/25 05:46 01/18/25 11:05 Laboratory: Laboratory Results - last 24 hr 01/17/25 15:40: Sodium Cancelled, Potassium Cancelled, Chloride Cancelled, Carbon Dioxide Cancelled, Anion Gap Cancelled, BUN Cancelled, Creatinine Cancelled, Estim Creat Clear Calc Cancelled, Est GFR (MDRD) Non-Af Cancelled, BUN/Creatinine Ratio Cancelled, Glucose Cancelled, Calcium Cancelled 01/17/25 18:10: Sodium 137, Potassium 4.8, Chloride 103, Carbon Dioxide 19.4 L, Anion Gap 15, BUN 60 H, Creatinine 6.17 H, Estim Creat Clear Calc 11.01 L, Est GFR (MDRD) Non-Af 9 L, BUN/Creatinine Ratio 9.7 L, Glucose 167 H, Calcium 7.1 L 01/18/25 05:46: WBC 9.5, RBC 3.16 L, Hgb 8.8 L, Hct 27.3 L, MCV 86.4, MCH 27.8, MCHC 32.2, RDW Std Deviation 50.0 H, RDW Coeff of Jodie 15.6 H, Plt Count 353, MPV 9.0, Sodium 141, Potassium 5.5 H, Chloride 110 H, Carbon Dioxide 20.8 L, Anion Gap 10, BUN 41 H, Creatinine 3.30 H, Estim Creat Clear Calc 20.59 L, Est GFR (MDRD) Non-Af 20 L, BUN/Creatinine Ratio 12.3, Glucose 99, Calcium 7.3 L, Phosphorus 3.4, Magnesium 2.3 H 01/18/25 11:05: Sodium 138, Potassium 4.6, Chloride 106, Carbon Dioxide 20.1 L, Anion Gap 12, BUN 32 H, Creatinine 2.57 H, Estim Creat Clear Calc 26.43 L, Est GFR (MDRD) Non-Af 27 L, BUN/Creatinine Ratio 12.4, Glucose 131 H, Calcium 7.2 L Microbiology: Microbiology 01/13/25 09:27 Blood Culture (Wb) - Anticubital Left Blood Culture - Final No growth in 5 days. 01/13/25 09:27 Blood Culture (Wb) - Anticubital Right Blood Culture - Final No growth in 5 days. 01/12/25 11:00 Urine, Clean Catch Urine Culture - Final Culture exhibits no growth. D/C Instructions Discharge Diet: No restrictions Return to work on: 01/25/25 (Do not return to work until after you see Dr. Mota) DC O2, CPAP, BIPAP Needs Home O2 Discharge instructions: No Meaningful Use Info Meaningful Use Meaningful Use Diagnoses (Choose all that apply): None applicable Ischemic Stroke Statin Dosing Therapy Reference: STATIN DOSE THERAPY REFERENCE: * Patients > 75 years receive moderate or high dose statin therapy. * Patients 75 years or YOUNGER should receive HIGH intensity statin dose unless contraindicated. You will be required to document reason for non-treatment if statin daily dose does not meet guidelines. HIGH DOSE STATIN THERAPY DAILY Atorvastatin > than or = to 40 mg Rosuvastatin > than or = to 20 mg Amlodipine + Atorvastatin > than or = to 2.5/40 mg Ezetimibe + Simvastatin 10/80 mg Simvastatin 80mg Discharge Plan Admission Admit Date/Time: 01/12/25 10:53 Primary Reason for Your Visit: Gross hematuria Attending Provider: Magalys Dumas Primary Care Provider: Care Physician,No Primary Consulting Providers: Darrell Mota; Awilda De Los Santos Instructions Patient Instructions: GIOVANNI RN Percutaneous Nephromstomy, GIOVANNI RN Percutaneous Nephrostomy Dc Additional Instructions / Restrictions: 1. Please call Dr. Mota's office tomorrow or later today to schedule an appointment to be seen early next week Discharge Orders/Prescriptions Prescriptions: New acetaminophen 325 mg Tablet 650 mg PO Q6H PRN PRN (Reason: Pain 1-10 Or Fever >100.7) Qty: 0 0RF oxycodone 5 mg Tablet 5 mg PO Q4H PRN PRN (Reason: Pain Score 4-10) 5 Days Qty: 30 0RF Referrals / Follow Up: Darrell Mota MD [Med Staff - Active Staff] - See Referral Note (Call later today or tomorrow to set up an appointment to be seen early next week) Care Physician,No Primary [Primary Care Provider] - Disposition Disposition (needs filled in before D/C Order can be placed): Home, Self Care Charges/Coding Visit Charges Inpatient E&M: 90342 Disch Hosp >30min
--- NOTE | 2025-01-18 14:04 | PHA.DC_ITS ---
Pharmacy [facility] has performed discharge medication reconciliation and counseling for this patient. 1. ACETAMINOPHEN 650MG PO Q6H PRN PAIN 2. OXYCODONE 5MG PO Q4H PRN PAIN The patient's discharge medication list was reviewed for discrepancies and discrepancies were resolved. The patient was counseled on the following discharge medications and changes in medications for homegoing were reviewed. The Reason for Use, instructions for use, and potential side effects were reviewed for all new medications. The patient's questions regarding all of their medications were answered. The patient was able to verbally demonstrate an understanding of their discharge medications. Medications at Discharge Home Medications acetaminophen 325 mg tablet 650 mg (2 x 325 mg) PO Q6H PRN PRN Pain 1-10 Or Fever >100.7 #0 tabs 01/18/25 oxycodone 5 mg tablet 5 mg PO Q4H PRN PRN Pain Score 4-10 5 days #30 tabs 01/18/25
[2025-01-18 14:45] VITALS: BP 124/79; PULSE 69; RESP 18; TEMP 36.9; O2SAT 100
== END 2025-01-18 14:53 | disposition home or self-care (01) | DRG 668 ==
LOC: ED 10:47 → ICU 10:58 → MS3 01-13 18:16
PROVIDERS: Anesthesiology; Urology; Admitting Provider Student in an Organized Health Care Education/Training Program; Emergency Provider Emergency Medicine; Visit Provider Internal Medicine
PROC: 0TBB8ZZ Excision of Bladder, Via Natural or Artificial Opening Endoscopic (ICD-10-PCS; principal; 2025-01-15 11:50)
DX: C67.9 Malignant neoplasm of bladder, unspecified (principal); E43 Unspecified severe protein-calorie malnutrition; E87.20 Acidosis, unspecified; D62 Acute posthemorrhagic anemia; N17.9 Acute kidney failure, unspecified; N13.30 Unspecified hydronephrosis; N13.8 Other obstructive and reflux uropathy; D72.829 Elevated white blood cell count, unspecified; E87.5 Hyperkalemia; F17.210 Nicotine dependence, cigarettes, uncomplicated; R31.0 Gross hematuria; R79.89 Other specified abnormal findings of blood chemistry; Z79.899 Other long term (current) drug therapy; Z68.21 Body mass index [BMI] 21.0-21.9, adult
CPT/HCPCS: 36415; 36600; 50432; 51702; 74177; 76000; 80048; 80053; 80076; 81001; 82728; 82803; 83540; 83550; 83735; 84100; 84153; 84156; 85025; 85027; 85610; 85730; 86644; 86850; 86900; 86901; 87040; 87086; 88305; 88307; 93005; 97116; 97161; 97166; 97530; 97802; 99156; 99157; 99285; 99406; P9016; Q9967; A4216; C1769; G0103; J2405